=== PATIENT | male | born 1930 | race Caucasian/White ===

== ENCOUNTER 2017-05-11 09:22 | Emergency (ER) | payer MEDICARE, OTHER ==
[2016-04-10 09:16] VITALS: BMI 26.8
[~2017-05-11 09:22] MED LIST: ASPIRIN325 MG PO; ASPIRIN81 MG PO; COZAAR100 MG PO; GLIMEPIRIDE1 MG PO; ISOSORBIDE MONO30 M1 PO; LIPITOR20 MG PO; LOSARTAN POTASS25 MG PO; NORVASC5 MG PO; PLAVIX75 MG PO; TENORMIN100 MG PO; ZYLOPRIM300 MG PO
[2017-05-11 10:17] LABS: BASOPHILS 0.4 % (0-2); EOSINOPHILS 7.3 % (0-7); HEMATOCRIT 31.8 % (42.0-54.0); HEMOGLOBIN 12.4 g/dL (13.5-17.5); IMMATURE GRANULOCYTES 0.4 % (0-5); LYMPHOCYTES 28.3 % (15-50); MCH 37.8 pg (26.0-34.0); MEAN PLATELET VOLUME 9.2 fL (7.4-10.4); MONOCYTES 11.7 % (2-11); NEUTROPHILS 51.9 % (40-80); RBC 3.28 10x6/uL (4.20-6.10); RDW 13.1 % (11.5-14.5); WBC 4.8 10x3/uL (4.8-10.8)
[2017-05-11 10:35] LABS: ALBUMIN 3.3 g/dL (3.4-5.0); ANION GAP 12.9 mmol/L (8-16); BILIRUBIN - TOTAL 0.45 mg/dL (0.2-1.3); CALCIUM 9.1 mg/dL (8.5-10.1); CARBON DIOXIDE 26.8 mmol/L (21.0-32.0); CREATININE - SERUM 1.1 mg/dL (0.6-1.3); POTASSIUM - SERUM 3.7 mmol/L (3.5-5.1); PROTEIN - SERUM 7.5 g/dL (6.4-8.2)
[2017-05-11 10:37] LABS: PLATELET COUNT 294 10x3/uL (130-400)
== END 2017-05-11 12:21 | disposition home or self-care (01) ==
LOC: D.ER 09:22
PROVIDERS: Emergency Medicine
DX: J44.1 Chronic obstructive pulmonary disease with (acute) exacerbation (principal); R06.00 Dyspnea, unspecified; I10 Essential (primary) hypertension

== ENCOUNTER 2017-08-17 12:14 | Observation (INO) | payer MEDICARE, OTHER ==
[2017-08-17 12:38] LABS: BASOPHILS 0.6 % (0-2); HEMATOCRIT 41.2 % (42.0-54.0); HEMOGLOBIN 13.8 g/dL (13.5-17.5); IMMATURE GRANULOCYTES 0.2 % (0-5); LYMPHOCYTES 35.3 % (15-50); MCH 30.9 pg (26.0-34.0); MCHC 33.5 g/dL (31.0-37.0); MCV 92.2 fL (80.0-100.0); MEAN PLATELET VOLUME 10.2 fL (7.4-10.4); MONOCYTES 11.3 % (2-11); NEUTROPHILS 43.6 % (40-80); RBC 4.47 10x6/uL (4.20-6.10); RDW 13.8 % (11.5-14.5); WBC 6.7 10x3/uL (4.8-10.8)
[2017-08-17 12:49] LABS: PLATELET COUNT 221 10x3/uL (130-400)
[2017-08-17 12:53] LABS: ALBUMIN 4.1 g/dL (3.4-5.0); ALKALINE PHOSPHATASE 119 U/L (46-116); ALT (SGPT) 18 U/L (10-68); BILIRUBIN - TOTAL 0.52 mg/dL (0.2-1.3); CALC OSMOLALITY 283 mosm/kg (275-300); CALCIUM 9.8 mg/dL (8.5-10.1); CARBON DIOXIDE 24.7 mmol/L (21.0-32.0); CHLORIDE - SERUM 102 mmol/L (98-107); CREATININE - SERUM 1.4 mg/dL (0.6-1.3); GLUCOSE 135 mg/dL (74-106); POTASSIUM - SERUM 3.8 mmol/L (3.5-5.1); PROTEIN - SERUM 8.2 g/dL (6.4-8.2); SODIUM 141 mmol/L (136-145); UREA NITROGEN 14 mg/dL (7-18); eGFR NON AFRICAN AMERICAN 51 mL/min (90-120)
[2017-08-17 13:03] LABS: CHOL - HDL RATIO 2.7 ratio (2.3-4.9); CHOLESTEROL, TOTAL 197 mg/dL (0-200); CKMB 2.6 U/L (0.0-3.6); CREATINE KINASE 126 UL (21-232); HDL CHOLESTEROL 73 mg/dL (32-96); LDL CHOLESTEROL 105 mg/dL (0-100); LDL-HDL RATIO 1.4 ratio (1.5-3.5); PRO BNP 975 pg/mL (0-450); TRIGLYCERIDE 98 mg/dL (30-200)
[2017-08-17 13:04] LABS: TROPONIN-I < 0.017 ng/mL (0.000-0.060)
--- NOTE | 2017-08-17 16:04 | NUR ---
TRANSFER FROM ER BY W/C. VIPULINTED TO ROOM. CALL LIGHT IN REACH. WILL CONT. PLAN OF CARE.
[2017-08-17 16:34] VITALS: BP 159/74; BMI 25.3
[2017-08-17] MEDS ORDERED: TOPROL XL50 MG PO (16:59)
--- NOTE | 2017-08-17 19:32 | NUR ---
ASSESSMENT COMPLETE, A&O. RESPERATIONS EVEN ON RA. IV TO LEFT FOREARM WITH NS INFUSING AT 50 CC/HR. SITE CLEAN AND DRY. PT DENIES PAIN OR NEEDS, BED LOW, CL IN REACH.
[2017-08-17 21:28] VITALS: BP 128/68
--- NOTE | 2017-08-17 22:10 | NUR ---
ENTERED ROOM, PT IN SITTING UP IN BED WATCHING TV. PT DENIES PAIN OR NEEDS, BED LOW, CL IN REACH.
--- NOTE | 2017-08-18 01:25 | NUR ---
RESTING WITH EYES CLOSED, RESPERATION EVEN, NO S/S DISTRESS NOTED.
[2017-08-18 02:07] VITALS: BP 139/69
--- NOTE | 2017-08-18 04:18 | NUR ---
WEDGER AT BED SIDE TO OBTAIN VITALS.
[2017-08-18 05:25] VITALS: BP 152/72
--- NOTE | 2017-08-18 05:30 | NUR ---
PT UP IN ROOM, AWAKE, ALERT, ORIENTED, ASKING FOR ICE WATER. PT DENIES ANY OTHER NEEDS. CONTINUE TO MONITOR CLOSELY.
--- NOTE | 2017-08-18 06:15 | NUR ---
CONSENT SIGNED FOR CARDIAC CATH TO BE DONE TODAY, WITTNESSED BY SECOND NURSE AND PLACED IN CHART.
[2017-08-18 06:27] VITALS: BMI 25.3
[2017-08-18 07:43] VITALS: BP 152/72
--- NOTE | 2017-08-18 09:00 | NUR ---
RELEMETRY SR. AMBULATES HALLWAY WITHOUT C/O C/P NOTED.
--- NOTE | 2017-08-18 10:05 | NUR ---
IV AND TELEMETRY DCD. DC PLANS GIVEN. UNDERSTANDING VOICED. ESCORTED TO CAR BY W/C.
--- NOTE | 2017-08-20 16:56 | DS ---
PATIENT:SEBASTIAN LAUREN :34 MEDICAL RECORD: [id number] DISCHARGE SUMMARY ADMISSION DATE: 08/17/17 DISCHARGE DATE: 08/18/17 DISCHARGE DIAGNOSES: 1. Coronary artery disease. 2. Angina. 3. Hypertension. HOSPITAL COURSE: Mr. Lauren presents with chest pain, ruled out for myocardial infarction and had no EKG changes. No further episodes of chest pain. Discharged home to follow up with [facility] for stress test in the future. TRANSINT:[id number] Voice Confirmation ID: [id number] DOCUMENT ID: [id number] MIAN AGUIRRE MD at 1656 CC: [id number] DICTATION DATE: 08/18/17921 VETERINARY BACTERIOLOGIST: 08/18/17 1451 DIS IN 08/18/17 [facility] [address] [place] [address]
--- NOTE | 2017-08-20 16:56 | HP ---
PATIENT: SEBASTIAN GUPTA MEDICAL RECORD: [id number] ACCOUNT: [id number] LOCATION:[facility].2120 : 34 ADMISSION DATE: 08/17/17 HISTORY AND PHYSICAL EXAMINATION DIAGNOSES: 1. Angina. 2. Coronary artery disease. 3. Previous multivessel PTCA stent. 4. Hypertension. HISTORY OF PRESENT ILLNESS: This is a gentleman well known to us, previous multivessel PTCA stent, last being approximately 1 year ago. Today while ambulating, he had a chest pressure, a dull aching sensation across the anterior chest, some radiation to the left arm. He presented in the Emergency Room with this. He did receive 1 sublingual nitro, his pain is improved, but he is still having chest pain. last PTCA stent was approximately a year ago. His EKG is with nonspecific ST-T abnormalities. PHYSICAL EXAMINATION: GENERAL APPEARANCE: Well-nourished, well-developed, appears stated age. Level of distress, comfortable. PSYCHIATRIC: Mental status, alert, normal affect. Orientation, oriented to time, place and person. EYES: Lids and conjunctiva, noninjected. No discharge, no pallor. ENT: Lips, teeth, gums, normal dentition. Oropharynx, no cyanosis, no pallor. NECK: Carotid arteries, bilateral normal upstroke, no bruits, no thrills. JUGULAR VEINS: No jugular venous pressure or distention. CERVICAL LYMPH NODES: Nontender, nonenlarged. THYROID: Not enlarged. Nontender. No nodules. LUNGS: Respiratory effort, unlabored. CHEST: Normal curvature. No thoracic deformity. No chest wall tenderness. Percussion, resonant. Auscultation, clear. No wheezes, no rales, no rhonchi. CARDIOVASCULAR: Precordial exam, nondisplaced. No heaves or pericardial thrills. Rate and rhythm, regular. Heart sounds, normal S1, normal S2. No S3, no gallop, no rub. Systolic murmur, not heard. Diastolic murmur, not heard. EXTREMITIES: No cyanosis, no edema. Peripheral pulses, full and equal in all extremities, except as noted. No bruits appreciated. ABDOMEN: Soft, nondistended. Normal aorta. No bruit. Nontender. No masses. Liver, nontender, no hepatomegaly. Spleen, nontender, no splenomegaly. MUSCULOSKELETAL: No joint tenderness. No joint swelling. No erythema. NEUROLOGICAL: Normal gait, normal strength, normal tone. SKIN: Warm and dry. REVIEW OF SYSTEMS: The patient reports easy bruising but reports no swollen glands. The patient reports no fever, no night sweats, no significant weight gain, no significant weight loss. No significant exercise tolerance. The patient reports no dry eyes, no irritation, no vision change. Patient reports no difficulty hearing and no ear pain. Patient reports no frequent nose bleeds or nose and sinus problems. Patient reports on arm pain on exertion. No shortness of breath while lying down. No history of heart murmur. Patient reports no cough, no wheezing or coughing up blood. Patient reports no abdominal pain, no vomiting. Normal appetite. No diarrhea and not vomiting blood. No nausea and no constipation. Patient reports no incontinence. No difficulty urinating. No hematuria. No increased frequency. Patient reports HISTORY AND PHYSICAL [id number] ALONSOSEBASTIAN R no muscle aches. No weakness, no arthralgias, no back pain. No swelling of the extremities. Patient reports no abnormal mole, no jaundice, no rashes. Reports no loss of consciousness. No weakness and no numbness. No seizures, dizziness, or headaches. The patient reports no depression, no sleep disturbance, feeling safe in a relationship and no alcohol abuse. Patient reports on fatigue. Reports no runny nose or sinus pressure. No itching, no hives, and no frequent sneezing. OVERALL IMPRESSION: Chest pain compatible with angina in a person with multivessel coronary artery disease in the past. We will admit for observation. If he continues to have chest pain proceed with repeat coronary angiography. TRANSINT:[id number] Voice Confirmation ID: [id number] DOCUMENT ID: [id number] MIAN AGUIRRE MD at 1656 CC: [id number] DICTATION DATE: 08/17/17 1324 LIE DETECTOR OPERATOR: 08/17/17 1336 DIS IN 08/18/17 [place] [id number] [place] [id number]
== END 2017-08-18 10:13 | disposition home or self-care (01) ==
LOC: D.ER 12:14 → D.M2 14:22 → OBSVTIME 14:22 → D.M2 08-18 10:13
PROVIDERS: Emergency Medicine; ADMIT Internal Medicine Interventional Cardiology
DX: I25.119 Atherosclerotic heart disease of native coronary artery with unspecified angina pectoris (principal); Z95.5 Presence of coronary angioplasty implant and graft; I10 Essential (primary) hypertension

== ENCOUNTER 2017-08-26 17:51 | Inpatient (IN) | payer MEDICARE, OTHER ==
[~2017-08-26] VITALS: Ht 193 cm; Wt 94.3 kg
[~2017-08-26 17:51] MED LIST changes: +TOPROL XL50 MG PO
[2017-08-26 19:47] LABS: BASOPHILS 0.6 % (0-2); EOSINOPHILS 9.6 % (0-7); HEMATOCRIT 35.6 % (42.0-54.0); HEMOGLOBIN 11.7 g/dL (13.5-17.5); IMMATURE GRANULOCYTES 0.2 % (0-5); LYMPHOCYTES 23.1 % (15-50); MCH 30.4 pg (26.0-34.0); MCHC 32.9 g/dL (31.0-37.0); MCV 92.5 fL (80.0-100.0); MEAN PLATELET VOLUME 9.6 fL (7.4-10.4); MONOCYTES 8.2 % (2-11); NEUTROPHILS 58.3 % (40-80); PLATELET COUNT 210 10x3/uL (130-400); RBC 3.85 10x6/uL (4.20-6.10); RDW 13.6 % (11.5-14.5); WBC 4.8 10x3/uL (4.8-10.8)
[2017-08-26 20:03] LABS: APTT 28.3 SECONDS (22.8-39.4); INR 1.11 (0.85-1.17); PROTIME 14.2 SECONDS (11.6-15.0)
[2017-08-26 20:08] LABS: ALBUMIN 3.4 g/dL (3.4-5.0); ANION GAP 10.1 mmol/L (8-16); BILIRUBIN - TOTAL 0.27 mg/dL (0.2-1.3); CALCIUM 9.1 mg/dL (8.5-10.1); CREATININE - SERUM 1.4 mg/dL (0.6-1.3); POTASSIUM - SERUM 4.1 mmol/L (3.5-5.1)
[2017-08-26 20:17] LABS: MAGNESIUM - SERUM 2.2 mg/dL (1.8-2.4)
--- NOTE | 2017-08-26 21:35 | NUR ---
PT ARRIVED ON FLOOR VIA STRETCHER. TRANSFERED TO BED. FAMILY AT SIDE. IV NS INFUSING TO PATENT RIGHT FA. ORIENTED TO ROOM AND CALL LIGHT. BERTHA BED ALARM ARMED. NONSLIP STOCKINGS APPLIED. SCD'S APPLIED. PROVIDED WITH DRINK AND FOOD.
[2017-08-26 22:14] VITALS: BP 156/50; BMI 25.3
[2017-08-27] VITALS (8 sets, daily range): BP systolic 108–135; BP diastolic 43–61; Ht 193 cm; Wt 94.3 kg
[2017-08-27 02:59] LABS: APPEARANCE CLEAR (CLEAR); BILIRUBIN NEGATIVE (NEGATIVE); COLOR YELLOW (YELLOW); GLUCOSE NEGATIVE (NEGATIVE); KETONE NEGATIVE (NEGATIVE); NITRITE NEGATIVE (NEGATIVE); PROTEIN NEGATIVE (NEGATIVE); UROBILINOGEN NORMAL (NORMAL)
--- NOTE | 2017-08-27 07:25 | NUR ---
REMAINS NPO FOR POSSIBLE SURGERY. FAMILY AT BEDSIDE AND BERTHA ALARM ON AND IN WORKING ORDER. CALL LIGHT IN REACH, WILL CONTINUE WITH PLAN OF CARE.
--- NOTE | 2017-08-27 09:08 | NUR ---
PRN DILAUDID ADMINISTERED FOR PAIN. PT'S PERSONAL CLOTHING REMOVED AND PLACED IN HOSPITAL GOWN. AT BEDSIDE. BERTHA ALARM ON AND IN WORKING ORDER. PT DENIES FURTHER NEEDS AT THIS TIME. WILL CONTINUE WITH PLAN OF CARE.
--- NOTE | 2017-08-27 11:15 | NUR ---
DILAUDID ADMINISTERED AT THIS TIME FOR PAIN. REMAINS AT BEDSIDE. PLACED ON 2L VIA NC FOR HISTORY OF SLEEP APNEA AND PT'S LETHARGY.
[2017-08-27 11:47] LABS: BASOPHILS 0.5 % (0-2); EOSINOPHILS 7.2 % (0-7); HEMATOCRIT 32.3 % (42.0-54.0); HEMOGLOBIN 10.6 g/dL (13.5-17.5); IMMATURE GRANULOCYTES 0.2 % (0-5); LYMPHOCYTES 20.5 % (15-50); MCH 30.3 pg (26.0-34.0); MCHC 32.8 g/dL (31.0-37.0); MCV 92.3 fL (80.0-100.0); MEAN PLATELET VOLUME 9.6 fL (7.4-10.4); MONOCYTES 11.4 % (2-11); NEUTROPHILS 60.2 % (40-80); PLATELET COUNT 204 10x3/uL (130-400); RDW 13.5 % (11.5-14.5)
[2017-08-27 12:08] LABS: ALBUMIN 3.1 g/dL (3.4-5.0); ANION GAP 9.6 mmol/L (8-16); BILIRUBIN - TOTAL 0.63 mg/dL (0.2-1.3); CALCIUM 8.7 mg/dL (8.5-10.1); CARBON DIOXIDE 29.4 mmol/L (21.0-32.0); CREATININE - SERUM 1.1 mg/dL (0.6-1.3); PROTEIN - SERUM 6.5 g/dL (6.4-8.2)
[2017-08-28 04:58] LABS: BASOPHILS 0.5 % (0-2); EOSINOPHILS 9.2 % (0-7); HEMATOCRIT 32.1 % (42.0-54.0); HEMOGLOBIN 10.7 g/dL (13.5-17.5); IMMATURE GRANULOCYTES 0.2 % (0-5); LYMPHOCYTES 20.8 % (15-50); MCH 30.8 pg (26.0-34.0); MCHC 33.3 g/dL (31.0-37.0); MCV 92.5 fL (80.0-100.0); MEAN PLATELET VOLUME 9.9 fL (7.4-10.4); MONOCYTES 13.7 % (2-11); NEUTROPHILS 55.6 % (40-80); PLATELET COUNT 203 10x3/uL (130-400); RBC 3.47 10x6/uL (4.20-6.10); RDW 13.6 % (11.5-14.5); WBC 6.3 10x3/uL (4.8-10.8)
[2017-08-28 05:05] VITALS: BP 127/47
[2017-08-28 05:09] LABS: ALBUMIN 3.1 g/dL (3.4-5.0); ANION GAP 10.8 mmol/L (8-16); BILIRUBIN - TOTAL 0.43 mg/dL (0.2-1.3); CALCIUM 8.6 mg/dL (8.5-10.1); CREATININE - SERUM 1.1 mg/dL (0.6-1.3); POTASSIUM - SERUM 3.8 mmol/L (3.5-5.1); PROTEIN - SERUM 6.6 g/dL (6.4-8.2)
--- NOTE | 2017-08-28 07:40 | NUR ---
ASSESSMENT COMPLETE. IV TO R FA PATENT. NS INFUSING AT 75 CC/HR VIA PUMP. PRINCIPAL CONSULTANT SHOWING SR WITH PVC'S 88 PER TECH. O2 2L NC IN USE. [place]. SCD'S IN USE TO BILAT LEGS. BED ALARM IN USE.
[2017-08-28 08:33] VITALS: BP 143/68
[2017-08-28 12:26] VITALS: BP 136/64
--- NOTE | 2017-08-28 16:40 | NUR ---
REDNESS NOTED TO BUTTOCKS. BRUISING NOTED TO L HIP.
[2017-08-28 17:06] VITALS: BP 156/86
[2017-08-28 22:03] VITALS: BP 137/64
[2017-08-29] VITALS (14 sets, daily range): BP systolic 110–167; BP diastolic 59–90
[2017-08-29 06:12] LABS: BASOPHILS 0.6 % (0-2); HEMATOCRIT 30.1 % (42.0-54.0); IMMATURE GRANULOCYTES 0.2 % (0-5); LYMPHOCYTES 19.2 % (15-50); MCH 30.3 pg (26.0-34.0); MCHC 33.2 g/dL (31.0-37.0); MCV 91.2 fL (80.0-100.0); MEAN PLATELET VOLUME 9.7 fL (7.4-10.4); MONOCYTES 13.3 % (2-11); NEUTROPHILS 57.7 % (40-80); PLATELET COUNT 192 10x3/uL (130-400); RDW 13.4 % (11.5-14.5); WBC 6.2 10x3/uL (4.8-10.8)
[2017-08-29 06:36] LABS: ALBUMIN 2.8 g/dL (3.4-5.0); ALKALINE PHOSPHATASE 77 U/L (46-116); ALT (SGPT) 12 U/L (10-68); BILIRUBIN - TOTAL 0.55 mg/dL (0.2-1.3); CALC OSMOLALITY 277 mosm/kg (275-300); CALCIUM 8.4 mg/dL (8.5-10.1); CARBON DIOXIDE 29.6 mmol/L (21.0-32.0); CHLORIDE - SERUM 103 mmol/L (98-107); GLUCOSE 116 mg/dL (74-106); POTASSIUM - SERUM 3.7 mmol/L (3.5-5.1); PROTEIN - SERUM 6.4 g/dL (6.4-8.2); SODIUM 139 mmol/L (136-145); UREA NITROGEN 10 mg/dL (7-18); eGFR NON AFRICAN AMERICAN 75 mL/min (90-120)
--- NOTE | 2017-08-29 07:40 | NUR ---
ASSESSMENT COMPLETE. IV TO R FA PATENT. NS INFUSING AT 75 CC/HR VIA PUMP. NPO FOR SURGERY TODAY. BRUISING NOTED TO L HIP. SKIN TEARS NOTED TO L FA. BOLTING MACHINE OPERATOR SHOWING SR WITH PVC'S 89. O2 2L NC IN USE. [place]. BERTHA MAT IN USE. FAMILY AT BEDSIDE.
--- NOTE | 2017-08-29 08:23 | NUR ---
OFF FLOOR TO OR VIA BED. FAMILY TO WAITING ROOM.
--- NOTE | 2017-08-29 10:30 | NUR ---
RECIEVED BACK TO ROOM FROM RECOVERY ROOM VIA BED. INCISIONS X 3 TO L LEG. SMALL AMOUNT OF PINKISH DRAINAGE NOTED TO UPPER DRESSING. DROWSY BUT AWAKENS TO VERBAL STIMULI. VSS. SCD'S IN USE TO BILAT LEGS. DIAL LATHE OPERATOR PLACED BACK ON PATIENT. FAMILY AT BEDSIDE.
--- NOTE | 2017-08-29 15:15 | NUR ---
REHAB PRESCREEN THIS PATIENT WILL BE A GOOD CANIDINATE FOR REHAB. WILL NEED A PHYSCIAL AND OCCUPATIONAL THERAPY EVAL BEFORE ABLE TO EVAL FOR THERAPY. WE APPRICIATE THE EVAL AND WILL FOLLOW UP ON THIS EVAL. THANKS FOR THIS EVAL. REHAB CLINICAL LIASION SANDRA TOSCANO LPN
--- NOTE | 2017-08-29 16:19 | NUR ---
DROWSY BUT AWAKENS EASILY TO VERBAL STIMULI. SEROSANGIOUS DRAINAGE NOTED TO UPPER DRESSING. ICEPACK IN USE. PEDAL PULSES REMAIN PRESENT AND STRONG. AT BEDSIDE. DENIES ANY NEEDS AT THIS TIME.
--- NOTE | 2017-08-29 18:12 | NUR ---
NO CHANGES NOTED AT THIS TIME.
--- NOTE | 2017-08-29 23:30 | NUR ---
GAVE PT DULCOLAX SUPPOSITORY. AFTER 30 MINUTES, PT HAD SOFT MEDIUM BM. NO OTHER NEEDS. WILL CONTINUE TO MONITOR.
--- NOTE | 2017-08-30 01:00 | NUR ---
PT C/O HAVING SORE THROAT SINCE SURGERY. CLAIMS IT HAS PROGRESSED INTO "CLOSING UP." PT TRIED EATING SANDWICH BUT STATES "FOOD WON'T GO DOWN." TOLD PT HE WILL BE NPO EXCEPT FOR SIPS OF WATER OR ICE, NO MORE FOOD UNTIL SWELLING GOES DOWN OR HE SEES DOCTOR. INSTRUCTED PT TO CALL IF ANY DIFFICULTY BREATHING. PT VERALIZED UNDERSTANDING. WILL CONTINUE TO MONITOR.
[2017-08-30 01:36] VITALS: BP 141/62
[2017-08-30 05:04] VITALS: BP 152/62
[2017-08-30 05:14] LABS: BASOPHILS 0.3 % (0-2); EOSINOPHILS 6.2 % (0-7); HEMOGLOBIN 10.4 g/dL (13.5-17.5); IMMATURE GRANULOCYTES 0.2 % (0-5); LYMPHOCYTES 22.3 % (15-50); MCH 30.2 pg (26.0-34.0); MCHC 33.5 g/dL (31.0-37.0); MCV 90.1 fL (80.0-100.0); MEAN PLATELET VOLUME 9.8 fL (7.4-10.4); MONOCYTES 16.4 % (2-11); NEUTROPHILS 54.6 % (40-80); PLATELET COUNT 229 10x3/uL (130-400); RBC 3.44 10x6/uL (4.20-6.10); RDW 13.3 % (11.5-14.5); WBC 6.6 10x3/uL (4.8-10.8)
[2017-08-30 05:46] LABS: ALBUMIN 2.7 g/dL (3.4-5.0); ANION GAP 10.2 mmol/L (8-16); BILIRUBIN - TOTAL 0.8 mg/dL (0.2-1.3); CALCIUM 8.7 mg/dL (8.5-10.1); CARBON DIOXIDE 28.7 mmol/L (21.0-32.0); CREATININE - SERUM 1.1 mg/dL (0.6-1.3); POTASSIUM - SERUM 3.9 mmol/L (3.5-5.1); PROTEIN - SERUM 6.4 g/dL (6.4-8.2)
[2017-08-30 08:21] VITALS: BP 132/55
[2017-08-30 13:28] VITALS: BP 133/54
--- NOTE | 2017-08-30 13:46 | NUR ---
Patient Name: SEBASTIAN GUPTA Admission Status: ER Accout number: [id number] Admission Date: 08-26-2017 : 1932 Admission Diagnosis: Attending: DONALD TYLER Current LOS: 4 Anticipated DC Date: Planned Disposition: Group Home Facility Primary Insurance: MEDICARE A & B Discharge Planning Comments: CM MET WITH PATIENT AND (GLENN) TO ASSESS DISCHARGE PLANNING NEEDS. PATIENT STATED THAT HE IS INDEPENDENT WITH HIS ADL'S AT HOME, HE DOES NOT HAVE ANY DME. HIS STATES THAT THERE ARE 2 STEPS IN THE BACK OF HIS HOUSE. HE WOULD LIKE TO DO REHAB AT [facility]. CM WILL ASSIST WITH THIS. CM WILL CONTINUE TO FOLLOW AND ASSIST WITH DSICHARGE PLANNING NEEDS. PCP: JAYLEN (BUT IS TRYING TO CHANGE PCP) [facility]ENN () [phone] Enrollment Management Director: Bekah King * Is the patient Alert and Oriented? Yes 0 * How many steps to enter\exit or inside your home? 2 0 * PCP JAYLEN ([facility]) 0 * Pharmacy [facility] 0 * Preadmission Environment Home with Family 0 * ADLs Independent 0 * Equipment None 0 * List name and contact numbers for known caregivers / representatives who currently or will assist patient after discharge: GLENN () [phone] * Community resources currently utilized None 0 * Additional services required to return to the preadmission environment? Yes 0 * Can the patient safely return to the preadmission environment? Yes 0 * Has this patient been hospitalized within the prior 30 days at any hospital? No 0 Grand Total: 0
[2017-08-30 16:13] VITALS: BP 134/58
--- NOTE | 2017-08-30 23:39 | NUR ---
2015)REC'D.IN BED.EYES CLOSED RESP. DEEP AND EVEN.DRSG. LEFT HIP DRY AND INTACT WITH MINIMAL SWELLING OBSERVED LEFT THIGH. FOOT WARM/PEDAL PULSE PRESENT WIGGLES TOES AND ANKLE WHEN TOUCHING BOTTOM OF FOOT. VISITOR AT BEDSIDE ASLEEP IN RECLINER.WILL CONTINUE TO MONITOR FOR ANY CHGES.AND FOLLOW CURRENT PLAN OF CARE.
[2017-08-31] VITALS: BP 125/54
--- NOTE | 2017-08-31 01:30 | NUR ---
PT RESTING WITH EYES CLOSED, RESPIRATIONS EQUAL AND UNLABORED. NO DISTRESS NOTED. WILL CONTINUE WITH PLAN OF CARE.
[2017-08-31 04:00] VITALS: BP 120/56
[2017-08-31 06:07] LABS: BASOPHILS 0.2 % (0-2); EOSINOPHILS 11.1 % (0-7); HEMATOCRIT 28.5 % (42.0-54.0); HEMOGLOBIN 9.6 g/dL (13.5-17.5); IMMATURE GRANULOCYTES 0.2 % (0-5); LYMPHOCYTES 24.1 % (15-50); MCH 30.7 pg (26.0-34.0); MCHC 33.7 g/dL (31.0-37.0); MCV 91.1 fL (80.0-100.0); MEAN PLATELET VOLUME 9.8 fL (7.4-10.4); MONOCYTES 15.2 % (2-11); NEUTROPHILS 49.2 % (40-80); PLATELET COUNT 222 10x3/uL (130-400); RBC 3.13 10x6/uL (4.20-6.10); RDW 13.6 % (11.5-14.5); WBC 5.4 10x3/uL (4.8-10.8)
[2017-08-31 06:38] LABS: ALBUMIN 2.5 g/dL (3.4-5.0); ANION GAP 11.5 mmol/L (8-16); BILIRUBIN - TOTAL 0.7 mg/dL (0.2-1.3); CALCIUM 8.6 mg/dL (8.5-10.1); CREATININE - SERUM 1.1 mg/dL (0.6-1.3); POTASSIUM - SERUM 3.5 mmol/L (3.5-5.1); PROTEIN - SERUM 6.3 g/dL (6.4-8.2)
[2017-08-31] MEDS ORDERED: ELIQUIS2.5 MG PO (07:51)
[2017-08-31] MEDS ORDERED: HYDROCODONE-APA1 TAB PO (07:51)
[2017-08-31 09:40] VITALS: BP 136/67
[2017-08-31] MEDS ORDERED: COLACE100 MG PO (10:23)
[2017-08-31] MEDS ORDERED: FLUTICASONE PRO16 GM NASAL (10:23)
--- NOTE | 2017-08-31 11:10 | NUR ---
OT NOTE: PT UP IN CHAIR; REPORTED FEELING BETTER. STATED THAT HE WAS GOING TO [facility] FOR REHAB TODAY. QUESTIONS ASKED AND ANSWERED IN DETAIL. DISCUSSED ADAP EQUIP AND PROVIDED INFORMATION REGARDING POSSIBLE NEED FOR SHOWER BENCH AND BS COMMODE OR RAISED TOILET SEAT.
--- NOTE | 2017-08-31 12:31 | NUR ---
DISCHARGE INSTRUCTIONS COMPLETED WITH PATIENT. HE VERBALIZED UNDERSTANDING AND DENIES ANY QUESTIONS. D/C IV TO RIGHT FOREARM WITH CATHETER INTACT. CHANGED DRESSING TO LEFT HIP, APPLIED AN AQUACEL DRESSING.
--- NOTE | 2017-08-31 12:45 | NUR ---
PATIENT DISCHARGING TO [facility] ([place], [place]) REHAB TO A SKILLED BE VIA THEIR VAN. AT BEDSIDE. INFORMATION FAXED TO [facility] ([place], [place])
--- NOTE | 2017-08-31 13:00 | NUR ---
PATIENT LEFT VIA WHEELCHAIR WITH STAFF MEMBER FROM [facility].
--- NOTE | 2017-08-31 13:14 | NUR ---
GAVE REPORT TO JOSELIN LEE LPN.
--- NOTE | 2017-09-02 13:19 | OP ---
PATIENT NAME: SEBASTIAN GUPTA MEDICAL RECORD: [id number] :34 LOCATION:[facility] ADMISSION DATE:08/26/17 SURGEON: ANTHONY BILLINGS MD DATE OF OPERATION: 08/29/2017 PREOPERATIVE DIAGNOSIS: Intertrochanteric hip fracture of the left hip. POSTOPERATIVE DIAGNOSIS: Intertrochanteric hip fracture of the left hip. PROCEDURE: Intramedullary gamma nailing of left intertrochanteric hip fracture. SURGEON: Anthony Billings MD ANESTHESIA: General. INTRAOPERATIVE COMPLICATIONS: None. SUMMARY OF PATHOLOGIC FINDINGS: The patient had a transverse intertrochanteric hip fracture consistent with the preoperative diagnosis. OPERATIVE SUMMARY IN DETAIL: After obtaining the appropriate preoperative orthopedic surgery consent as well as anesthetic consultation, evaluation and clearance, the patient was brought to the operating room and placed on the operating table in supine position. After general laryngeal mask was administered, the patient was placed on the fracture table. Right leg was placed in the well leg jain, left leg was placed in the traction device. This was reduced under fluoroscopic guidance on AP and lateral planes. Hip was prepped and draped in routine sterile fashion. A small incision was made at the tip of greater trochanter and taken down to the level of the greater trochanter. Awl was used to create an opening for the ball-tipped guidewire, was passed across the fracture site. Proximal reaming was followed by insertion of the short gamma 125 nail to the appropriate distance and the guide pin was then placed on fluoroscopic guidance on center-center planes. Appropriate reaming was then followed by insertion of the compression screw. The compression screw was then compressed. Derotational screw was placed at the appropriate depth. A distal locking screw was done using distal locking screw guide. Wounds were copiously irrigated and closed. Final radiographs were taken and submitted for radiologist's review. Sterile dressings were applied. The patient was awakened, taken to recovery room in stable condition. All final needle and sponge counts were correct. TRANSINT:[id number] Voice Confirmation ID: [id number] DOCUMENT ID: [id number] ANTHONY BILLINGS MD at 1319 CC: [id number] DICTATION DATE: 08/29/17 1017 PRENATAL TEACHER: 08/29/17 1204 DIS IN 08/31/17 [facility] [address] [facility] [place] [address]
--- NOTE | 2017-09-10 14:14 | CN ---
PATIENT NAME:SEBASTIAN GUPTA MEDICAL RECORD: [id number] : 34 LOCATION:[facility] ADMIT DATE: 08/26/17 ACCOUNT: [id number] CONSULTING PHYSICIAN: MIAN AGUIRRE MD REFERRING PHYSICIAN: DONALD TYLER DO DATE OF CONSULTATION: 08/27/2017 DIAGNOSES: 1. Preoperative evaluation for hip fracture. 2. Coronary artery disease. 3. Previous PTCA and stent. 4. Hypertension. 5. Plavix anticoagulation. HISTORY OF PRESENT ILLNESS: Mr. Gupta has past history of coronary artery disease, PTCA and stent greater than a year ago. No change in his chest pain. He gets infrequent episodes of anginal pain. He sustained a hip fracture while playing basketball. PHYSICAL EXAMINATION: GENERAL APPEARANCE: Well-nourished, well-developed, appears stated age. Level of distress, comfortable. PSYCHIATRIC: Mental status, alert, normal affect. Orientation, oriented to time, place and person. EYES: Lids and conjunctiva, noninjected. No discharge, no pallor. ENT: Lips, teeth, gums, normal dentition. Oropharynx, no cyanosis, no pallor. NECK: Carotid arteries, bilateral normal upstroke, no bruits, no thrills. JUGULAR VEINS: No jugular venous pressure or distention. CERVICAL LYMPH NODES: Nontender, nonenlarged. THYROID: Not enlarged. Nontender. No nodules. LUNGS: Respiratory effort, unlabored. CHEST: Normal curvature. No thoracic deformity. No chest wall tenderness. Percussion, resonant. Auscultation, clear. No wheezes, no rales, no rhonchi. CARDIOVASCULAR: Precordial exam, nondisplaced. No heaves or pericardial thrills. Rate and rhythm, regular. Heart sounds, normal S1, normal S2. No S3, no gallop, no rub. Systolic murmur, not heard. Diastolic murmur, not heard. EXTREMITIES: No cyanosis, no edema. Peripheral pulses, full and equal in all extremities, except as noted. No bruits appreciated. ABDOMEN: Soft, nondistended. Normal aorta. No bruit. Nontender. No masses. Liver, nontender, no hepatomegaly. Spleen, nontender, no splenomegaly. MUSCULOSKELETAL: No joint tenderness. No joint swelling. No erythema. NEUROLOGICAL: Normal gait, normal strength, normal tone. SKIN: Warm and dry. REVIEW OF SYSTEMS: The patient reports easy bruising but reports no swollen glands. The patient reports no fever, no night sweats, no significant weight gain, no significant weight loss. No significant exercise tolerance. The patient reports no dry eyes, no irritation, no vision change. Patient reports no difficulty hearing and no ear pain. Patient reports no frequent nose bleeds or nose and sinus problems. Patient reports on arm pain on exertion. No shortness of breath while lying down. No history of heart murmur. Patient reports no cough, no wheezing or coughing up blood. Patient reports no abdominal pain, no vomiting. Normal appetite. No diarrhea and not vomiting blood. No nausea and no constipation. Patient reports no incontinence. No difficulty urinating. No hematuria. No increased frequency. Patient reports CONSULT REPORT [id number] SEBASTIAN GUPTA no muscle aches. No weakness, no arthralgias, no back pain. No swelling of the extremities. Patient reports no abnormal mole, no jaundice, no rashes. Reports no loss of consciousness. No weakness and no numbness. No seizures, dizziness, or headaches. The patient reports no depression, no sleep disturbance, feeling safe in a relationship and no alcohol abuse. Patient reports on fatigue. Reports no runny nose or sinus pressure. No itching, no hives, and no frequent sneezing. IMPRESSION: At this time, he can safely come off his Plavix. Stable from a cardiac standpoint. Proceed with operative repair. Low cardiac risk. No further cardiac workup or treatment is necessary prior to the operation. TRANSINT:[id number] Voice Confirmation ID: [id number] DOCUMENT ID: [id number] MIAN AGUIRRE MD at 1414 CC: [id number] DICTATION DATE: 08/27/17 1209 SINGLE STROKE PREFORMER: 08/27/17 1225 DIS IN 08/31/17 [place] [id number]
== END 2017-08-31 13:18 | DRG 481 ==
LOC: D.ER 17:51 → D.MS 20:34
PROVIDERS: Emergency Medicine; Nurse Practitioner Family; Orthopaedic Surgery; ADMIT Family Medicine
PROC: 0QH736Z Insertion of Intramedullary Internal Fixation Device into Left Upper Femur, Percutaneous Approach (ICD-10-PCS; principal; 2017-08-29 08:30)
DX: S72.145A Nondisplaced intertrochanteric fracture of left femur, initial encounter for closed fracture (principal); D62 Acute posthemorrhagic anemia; W01.0XXA Fall on same level from slipping, tripping and stumbling without subsequent striking against object, initial encounter; Y93.67 Activity, basketball; E78.5 Hyperlipidemia, unspecified; I25.10 Atherosclerotic heart disease of native coronary artery without angina pectoris; I10 Essential (primary) hypertension; Z95.5 Presence of coronary angioplasty implant and graft

== ENCOUNTER → 2017-09-22 16:19 | Outpatient (CLI) | payer MEDICARE, OTHER ==
[2017-08-27 12:33] VITALS: BMI 25.3
[~2017-09-22 16:19] MED LIST changes: +ACETAMINOPHEN325 MG PO; +BROVANA15 MCG/2 M INH; +COLACE100 MG PO; +ELIQUIS2.5 MG PO; +FLUTICASONE PRO16 GM NASAL; +HYDROCODONE-APA1 TAB PO; +IPRAT-ALBUT 0.5-3 ML UPD; +LINZESS145 MCG PO; +MUCINEX600 MG PO; +NYSTATIN ORAL SU5 ML PO; +PULMICORT0.5 MG/21 UPD; +Rocephin INJ IM; +VIBRAMYCIN 100100 MG PO
== END | disposition home or self-care (01) ==
LOC: D.RAD 16:19
DX: R05 Cough (principal); R50.9 Fever, unspecified

== ENCOUNTER 2017-09-24 16:09 | Inpatient (IN) | payer MEDICARE, OTHER ==
[~2017-09-24] VITALS: Ht 193 cm; Wt 88.8 kg
[~2017-09-24 16:09] MED LIST changes: -ACETAMINOPHEN325 MG PO; -BROVANA15 MCG/2 M INH; -IPRAT-ALBUT 0.5-3 ML UPD; -LINZESS145 MCG PO; -MUCINEX600 MG PO; -NYSTATIN ORAL SU5 ML PO; -PULMICORT0.5 MG/21 UPD; -Rocephin INJ IM; -VIBRAMYCIN 100100 MG PO
[2017-09-24 17:08] LABS: BASOPHILS 0 % (0-2); EOSINOPHILS 0.7 % (0-7); HEMATOCRIT 32.6 % (42.0-54.0); HEMOGLOBIN 11.2 g/dL (13.5-17.5); IMMATURE GRANULOCYTES 1.2 % (0-5); LYMPHOCYTES 8.2 % (15-50); MCH 30.3 pg (26.0-34.0); MCHC 34.4 g/dL (31.0-37.0); MCV 88.1 fL (80.0-100.0); MEAN PLATELET VOLUME 10.2 fL (7.4-10.4); MONOCYTES 2.4 % (2-11); NEUTROPHILS 87.5 % (40-80); RDW 15.1 % (11.5-14.5); WBC 10.3 10x3/uL (4.8-10.8)
[2017-09-24 17:09] LABS: PLATELET COUNT 236 10x3/uL (130-400)
[2017-09-24 17:11] LABS: APPEARANCE CLEAR (CLEAR); BILIRUBIN NEGATIVE (NEGATIVE); COLOR YELLOW (YELLOW); GLUCOSE NEGATIVE (NEGATIVE); KETONE NEGATIVE (NEGATIVE); NITRITE NEGATIVE (NEGATIVE); PROTEIN TRACE mg/dL (NEGATIVE); UROBILINOGEN NORMAL (NORMAL)
[2017-09-24 17:14] LABS: BACTERIA FEW /hpf (NONE SEEN); RED CELLS - URINE 0-5 /hpf (0-5); WHITE CELLS - URINE OCC /hpf (0-5)
[2017-09-24 17:21] LABS: ALBUMIN 2.4 g/dL (3.4-5.0); ANION GAP 14.3 mmol/L (8-16); BILIRUBIN - TOTAL 0.92 mg/dL (0.2-1.3); CALCIUM 8.6 mg/dL (8.5-10.1); CARBON DIOXIDE 27.2 mmol/L (21.0-32.0); CREATININE - SERUM 1.3 mg/dL (0.6-1.3); POTASSIUM - SERUM 3.5 mmol/L (3.5-5.1); PROTEIN - SERUM 6.1 g/dL (6.4-8.2)
[2017-09-24 20:59] VITALS: BP 146/68
[2017-09-24 22:35] VITALS: BP 146/68
[2017-09-25 01:13] VITALS: BP 128/56
[2017-09-25 04:51] VITALS: BP 109/70
--- NOTE | 2017-09-25 07:05 | NUR ---
RECEIVED REPORT. ASSUMED CARE OF PATIENT. CALL LIGHT WITHIN REACH. PATIENT RESTING IN BED WITH EYES OPEN. AT BEDSIDE. PATIENT COMPLAINS OF CONSTIPATION THIS AM. DENIES PAIN OR DISCOMFORT AT THIS TIME. NO DISTRESS.
--- NOTE | 2017-09-25 07:16 | NUR ---
PT WAS ADMITTED FROM THE ER. PT CAME FROM [facility] W/ DX OF PNEUMONIA. PT IS ACCOMAPANIED BY WHO STAYED WITH PT ALL NIGHT AT THE BEDSIDE. PT IS STABLE AND CURRENTLY RECEIVING IV ABX AND HE IS WEARING SUPPLEMENTAL OXYGEN AT 3LNC. WILL CONT TO MONITOR.
[2017-09-25 08:47] VITALS: BP 96/66
--- NOTE | 2017-09-25 10:00 | NUR ---
PATIENT OOB SITTING TO CHAIR AT BEDSIDE. CALL LIGHT WITHIN REACH. NO DISTRESS.
[2017-09-25 11:51] VITALS: BP 104/58
[2017-09-25 12:04] VITALS: Ht 193 cm; Wt 88.8 kg
--- NOTE | 2017-09-25 14:21 | NUR ---
RESTING IN BED WITH EYES CLOSED. EASILY AROUSED. IV FLUSED, SITE IS PATENT. NO DISTRESS. CALL LIGHT WITHIN REACH.
[2017-09-25 15:46] VITALS: BP 150/73
--- NOTE | 2017-09-25 18:57 | NUR ---
REPORT GIVEN TO ONCOMING NURSE. NO DISTRESS.
[2017-09-25 21:24] VITALS: BP 136/67
[2017-09-26 06:25] LABS: BASOPHILS 0 % (0-2); EOSINOPHILS 0 % (0-7); HEMATOCRIT 30.3 % (42.0-54.0); HEMOGLOBIN 10.2 g/dL (13.5-17.5); IMMATURE GRANULOCYTES 0.6 % (0-5); LYMPHOCYTES 5.4 % (15-50); MCH 29.9 pg (26.0-34.0); MCHC 33.7 g/dL (31.0-37.0); MCV 88.9 fL (80.0-100.0); MEAN PLATELET VOLUME 10.2 fL (7.4-10.4); PLATELET COUNT 270 10x3/uL (130-400); RBC 3.41 10x6/uL (4.20-6.10); RDW 15.5 % (11.5-14.5); WBC 10.2 10x3/uL (4.8-10.8)
[2017-09-26 06:50] LABS: BILIRUBIN - TOTAL 0.44 mg/dL (0.2-1.3); CALCIUM 8.9 mg/dL (8.5-10.1); CARBON DIOXIDE 26.9 mmol/L (21.0-32.0); CHOL - HDL RATIO 6.3 ratio (2.3-4.9); CREATININE - SERUM 1.2 mg/dL (0.6-1.3); POTASSIUM - SERUM 3.9 mmol/L (3.5-5.1); PROTEIN - SERUM 6.3 g/dL (6.4-8.2); THYROID STIMULATING HORMONE 0.45 uIU/mL (0.36-3.74)
[2017-09-26 06:59] LABS: HEMOGLOBIN A1C 6.7 % (4.8-6.0)
--- NOTE | 2017-09-26 07:20 | NUR ---
RECEIVED REPORT. ASSUMED CARE OF PATIENT. RESTING IN BED WITH EYES CLOSED. IN BED WITH PATIENT. RESP EVEN AND UNLABORED. EASILY AROUSED. NO DISTRESS. DENIES NEEDS.
--- NOTE | 2017-09-26 08:35 | NUR ---
ASSISTE PATIENT TO INSERT BILATERAL HEARING AIDS AT THIS TIME HE COULD NOT GET A GOOD GRASP ON THEM TO INSERT. PATIENT THANKED THIS NURSE FOR PUTTING HIS HEARING AIDS IN. NO DISTRESS. SITTING UP IN BED CONSUMING AM MEAL AT THIS TIME.
[2017-09-26 09:34] VITALS: BP 127/67
--- NOTE | 2017-09-26 09:40 | NUR ---
FSBS 359. 10 UNITS HUMULIN ADMINISTERED PER SLIDING SCALE. NO DISTRESS. AT BEDSIDE FOR AM ROUNDS AT THIS TIME.
--- NOTE | 2017-09-26 11:49 | NUR ---
FSBS 326. 8 UNITS HUMUILN INSULIN ADMINISTERED PER SLIDING SCALE. NO DISTRESS.
[2017-09-26 12:16] VITALS: BP 131/60
--- NOTE | 2017-09-26 15:30 | NUR ---
PATIENT ASSISTED TO RESTROOM. PATIENT CONFUSED, WANTS TO KNOW WHAT IS GOING ON WITH HIS FOLKS. PATIENT STATES THEY MADE IT NOT POSSIBLE TO CALL OUT ON THE PHONE THAT EVERYONE MUST HAVE MOVED. ASSISTED PATIENT WITH CALLING HIS . NO DISTRESS. CALL LIGHT WITHIN REACH. PATIENT RESTING IN BED AT THIS TIME.
[2017-09-26 16:12] VITALS: BP 113/65
--- NOTE | 2017-09-26 16:17 | NUR ---
FSBS 165. 2 UNITS INSULIN ADMINISTERED PER SLIDING SCALE.
[2017-09-26 21:46] VITALS: BP 134/71
[2017-09-27] VITALS: BP 135/55
--- NOTE | 2017-09-27 02:24 | NUR ---
PT IN BED WITH HOB UP FOR COMFORT. EYES CLSOED. CHEST RISING AND FALLING. AT BEDSIDE. 02 @ 3L VIA NC. LEFT FA SL AND FLUSHES EASILY. BED IN LOWEST POSITION AND CALL LIGHT WITHIN REACH.
[2017-09-27 05:33] VITALS: BP 121/69
--- NOTE | 2017-09-27 07:30 | NUR ---
REPORT RECEIVED. RR EVEN AND UNLABORED, PT RECEIVING BREATHING TX. FAMILY AT BEDSIDE, WILL CTM.
[2017-09-27 08:52] VITALS: BP 155/75
[2017-09-27 12:39] VITALS: BP 145/70
--- NOTE | 2017-09-27 15:30 | NUR ---
FAMILY APPROACHED DESK VERY CONCERNED ABOUT PT BEING SENT HOME TOMORROW. EXPLAINED THAT SHE WOULD LIKE A CHEST X-RAY AND PFTS PRIOR TO DISCHARGE. WILL ADDRESS WITH DR. RODRIGUEZ WHEN HE ROUNDS.
[2017-09-27 16:27] VITALS: BP 155/83
--- NOTE | 2017-09-27 18:30 | NUR ---
PT RESTING QUIETLY, RR EVEN AND UNLABORED. PT DENIES NEEDS AT THIS TIME. FAMILY AT BEDSIDE, WILL GIVE REPORT ON PT CONDTION FOR THE DAY.
[2017-09-27 21:22] VITALS: BP 142/65
[2017-09-28 02:14] VITALS: BP 164/81
[2017-09-28 05:55] VITALS: BP 151/74
--- NOTE | 2017-09-28 07:15 | NUR ---
REPORT RECEIVED. PT DENIES NEEDS AT THIS TIME. FAMILY AT BEDSIDE. RR EVEN AND UNLABORED, WILL CTM.
[2017-09-28] MEDS ORDERED: Rocephin INJ IM (08:15)
[2017-09-28] MEDS ORDERED: VIBRAMYCIN 100100 MG PO (08:15)
[2017-09-28] MEDS ORDERED: NYSTATIN ORAL SU5 ML PO (08:17)
[2017-09-28] MEDS ORDERED: IPRAT-ALBUT 0.5-3 ML UPD (08:17)
[2017-09-28] MEDS ORDERED: BROVANA15 MCG/2 M INH (08:17)
[2017-09-28] MEDS ORDERED: ASPIRIN81 MG PO (08:18)
[2017-09-28] MEDS ORDERED: PULMICORT0.5 MG/21 UPD (08:18)
[2017-09-28] MEDS ORDERED: MUCINEX600 MG PO (08:19)
[2017-09-28] MEDS ORDERED: LINZESS145 MCG PO (08:20)
--- NOTE | 2017-09-28 09:45 | NUR ---
Patient Name: SEBASTIAN GUPTA Admission Status: ER Accout number: [id number] Admission Date: 09-24-2017 : 1930 Admission Diagnosis: Attending: MAT RODRIGUEZ Current LOS: 4 Anticipated DC Date: 09-28-2017 Planned Disposition: LONGTERM FACILITY Primary Insurance: MEDICARE A & B PLANNED EXTERNAL PROVIDER: [facility], MEDICARE REHAB BED Discharge Planning Comments: Patient Name: JOSE MANUEL BETANCOURT Encounter No: [id number] : 05-11-1929 Primary Insurance: MEDICARE A & B Anticipated DC Date: 09-25-2017 Planned Disposition: Residential Facility External Planned Provider: [facility]HAB [facility]ED DISCHARGE PLANNING: * Is the patient Alert and Oriented? Yes 0 * How many steps to enter\exit or inside your home? 2 0 * PCP [facility] 0 * Pharmacy [facility] 0 * Preadmission Environment Residential Facility 0 * [facility] * ADLs Partial Dependent 0 * Partial ADLs (Assistance needed) Ambulation Bathing Medication Management 0 * Equipment Other 0 * Other Equipment ALL MEDICAL EQUIPMENT PROVIDED BY FACILITY 0 * List name and contact numbers for known caregivers / representatives who currently or will assist patient after discharge: GLENN GUPTA, SPOUSE, 0 * Community resources currently utilized None 0 * Please name any agencies selected above. NONE 0 * Additional services required to return to the preadmission environment? No 0 * Can the patient safely return to the preadmission environment? Yes 0 * Has this patient been hospitalized within the prior 30 days at any hospital? No 0 CM RECEIVED DISCHARGE ORDER, MET WITH PT AND SPOUSE IN ROOM TO DISCUSS DISCHARGE PLANNING AND NEEDS. PT REPORTS HE IS IN REHAB AT [facility] AND WILL RETURN THERE TODAY; PT'S SPOUSE REQUESTED SYLVESTERJUSTICE REED TO THEATRICAL RIGGER PT. IMPORTANT MESSAGE FROM MEDICARE PROVIDED AND EXPLAINED. CM CALLED BARBARA, CLINICAL LIAISON FOR [facility], , ASKED FOR RETURN FOR REHAB. CM FAXED HOSPITAL STAY AND DISCHARGE INFORMATION TO [facility] VIA BARBARA AT [phone]. BARBARA ADVISED [facility] TO ACCEPT TODAY, SHE WILL NOTIFY CM WITH VAN THEATRICAL RIGGER TIME SHORTLY. NURSE REPORT TO BE CALLED TO [facility] AT [phone]. [facility] TO CALL WITH VAN THEATRICAL RIGGER TIME. Project Coordinator: Justin Hale
[2017-09-28 09:48] VITALS: BP 142/85
--- NOTE | 2017-09-28 10:45 | NUR ---
PT DISCHARGED. [facility] TRANSPORT HERE TO CIRCUIT CLERK PT. CALLED REPORT TO [facility] NURSE. D/C INSTRUCTIONS PROVIDED TO PT AND FAMILY. GAVE COPY OF PAPERWORK TO [facility] PERSONNEL WITH PRINTED SCRIPTS. DENIES FURTHER NEEDS. IV CATHETER REMOVED WITH CATHETER TIP INTACT. WILL BE LEAVING FLOOR VIA WHEELCHAIR. PT AND FAMILY VERBALIZED SATISFACTION WITH CARE.
== END 2017-09-28 11:04 | DRG 194 ==
LOC: D.ER 16:09 → D.M2 18:03
PROVIDERS: Physician Assistant Medical; ADMIT Family Medicine
DX: J18.9 Pneumonia, unspecified organism (principal); E87.1 Hypo-osmolality and hyponatremia; Z74.09 Other reduced mobility; I25.10 Atherosclerotic heart disease of native coronary artery without angina pectoris; I10 Essential (primary) hypertension; E78.5 Hyperlipidemia, unspecified; E11.9 Type 2 diabetes mellitus without complications; K59.00 Constipation, unspecified; Z87.891 Personal history of nicotine dependence

== ENCOUNTER → 2017-10-12 15:20 | Outpatient (CLI) | payer MEDICARE, OTHER ==
[2017-09-25 12:04] VITALS: BMI 23.5
[~2017-10-12 15:20] MED LIST changes: +ACETAMINOPHEN325 MG PO; +BROVANA15 MCG/2 M INH; +IPRAT-ALBUT 0.5-3 ML UPD; +LINZESS145 MCG PO; +MUCINEX600 MG PO; +NYSTATIN ORAL SU5 ML PO; +PULMICORT0.5 MG/21 UPD; +Rocephin INJ IM; +VIBRAMYCIN 100100 MG PO
== END | disposition home or self-care (01) ==
LOC: D.RAD 15:20
DX: R06.02 Shortness of breath (principal)

== ENCOUNTER 2017-11-02 07:54 | Outpatient (CLI) | payer MEDICARE, OTHER ==
[~2017-11-02] VITALS: Ht 193 cm; Wt 90.9 kg
--- NOTE | ~2017-11-02 | HEMODYNAMI ---
PATIENT:SEBASTIAN GUPTA MEDICAL RECORD: [id number] : 34 LOCATION:[facility] ADMISSION DATE: 11/02/17 Generatedon:11/02/201710:07 Patient name: SEBASTIAN GUPTA Patient #: [id number] SSN: : 1930 Date of study: 11/02/2017 Page: Of Hemodynamic Procedure Report Patient Data Patient Demographics Procedure consent was obtained First Name: SEBASTIAN Gender: Male Last Name: ALONSO : 1930 [facility] Initial: R Age: 87 year(s) Patient #: [id number] Race: Additional ID: [id number] Contact details Address: [address] [place] [address] State: [place] City: [place] Zip code: [address] Past Medical History History of disease Date Diagnosis Comments CAD Hypertension Arrhythmias - Ventricular tachycardias (VT)->Premature ventricular complexes (PVC) Allergies Allergen Reaction Date Comments Reported Penicillins 03/19/2015 ZENY inhibitors 09/22/2015 Other allergy 11/02/2017 PCN, Atenolol, ZENY Inhibitors Admission Admission Data Admission Date: 11/02/2017 Admission Time: 7:54 Height (in.): 6.4 BSA: 0.36 (m2) Height (cm.): 16.26 BMI: 3347.13 (kg/m2) Weight (lbs.): 195 Weight (kg.): 88.45 Lab Results Lab Result Date: 11/02/2017 Lab Result Time: 8:30 Biochemistry Name Units Result Min Max BUN mg/dl 11 --(-*--)-- 7 18 Creatinine mg/dl 1.1 --(--*-)-- 0.6 1.3 CBC Name Units Result Min Max Hematocrit % 37.7 *-(----)-- 42 54 Hemoglobin g/dl 12.2 *-(----)-- 13.5 17.5 Procedure Procedure Types Cath Procedure Diagnostic Procedure LHC [facility] w/Coronaries PCI Procedure Coronary Stent Coronary Stent Initial Miscellaneous Procedures Moderate Sedation up to 30 minutes Procedure Description Procedure Date Procedure Date: 11/02/2017 Procedure Start Time: 9:45 Procedure End Time: 10:02 Procedure Staff Name Function Tahir Partida MD Performing Physician Jerrica Zheng RT Scrub Christiano Black RN Nurse Abdelrahman Breaux RT Monitor Procedure Data Cath Procedure Fluoroscopy Diagnostic fluoroscopy Total fluoroscopy Time: 4.8 time: 4.8 min min Diagnostic fluoroscopy Total fluoroscopy dose: dose: 360.6 mGy 360.6 mGy Contrast Material Contrast Material Type Amount (ml) Isovue 300 107 Entry Location Entry Primary Successful Side Size Upsize Upsize Entry Closure Succes sful Closure Location (Fr) 1 (Fr) 2 (Fr) Remarks Device Remarks Femoral Right 5 Fr 6 Fr Exoseal artery Short Estimated blood loss: 10 ml Diagnostic catheters Device Type Used For End Catheter Placement MULTIPACK Pigtail 5 Fr Procedure catheter MULTIPACK JL 4.0 5Fr Procedure catheter MULTIPACK 3DRC 5Fr Procedure catheter Procedure Complications No complications Procedure Medications Medication Administration Route Dosage Oxygen NC 2 l/min Heparin Flush Bag added to field 2 bags (1000units/500ml NS) 0.9% NaCl I.V. 100 ml/hr Fentanyl I.V. 50 mcg Versed I.V. 1 mg Heparin Bolus I.V. 4000 units Integrilin (Bolus I.V. 8.5 ml 2mg/ml) Integrilin (Bolus wasted 1.5 ml 2mg/ml) Plavix P.O. 600 mg Hemodynamics Rest BSA: 0.36 (m2) HGB: 12.2 (g/dl) O2 Consumption: Estimated: 40.16 (ml/min) O2 Con sumption indexed: Estimated:111.56 (ml/min/m) Heart Rate: 65 (bpm) Pressure Samples Time Site Value (mmHg) Purpose Heart Use Rate(bpm) 9:48 AO 132/64(91) Snapshot 68 Snapshots Pre Cath Intra NCS Post Cath Vital Signs Time Heart Resp SPO2 etCO2 NIBP (mmHg) Rhythm Pain Sedation Rate (ipm) (%) (mmHg) Status Level (bpm) 9:37:57 68 18 96 0 Time NSR 0 (11) 10(A) Exceeded , No pain 9:42:44 66 16 99 23.3 Time NSR 0 (11) 10(A) Exceeded , No pain 9:46:56 69 18 98 37.7 Time NSR 0 (11) 9(A) Exceeded , No pain 9:49:48 71 27 87 16.5 148/72(119) NSR 0 (11) 9(A) , No pain 9:54:12 75 20 92 0 133/72(115) NSR 0 (11) 9(A) , No pain 9:58:28 79 20 94 24.8 144/76(101) NSR 0 (11) 9(A) , No pain 10:02:50 79 19 98 21.1 147/74(117) NSR 0 (11) 9(A) , No pain Medications Time Medication Route Dose Verified Delivered Reason Notes Effectiveness by by 9:41:25 Oxygen NC 2 Tahir Alvarado Per physician l/min Helga Black RN 9:41:59 Heparin Flush added 2 Tahir Alvarado used for Bag to bags Helga Black RN procedure (1000units/500ml field NS) 9:42:17 0.9% NaCl I.V. 100 Tahir Alvarado Per physician ml/hr Helga Black RN 9:45:09 Fentanyl I.V. 50 Tahir Alvarado for sedation mcg Helga Black RN 9:45:16 Versed I.V. 1 mg Tahir Alvarado for sedation Helga Black RN 9:54:02 Heparin Bolus I.V. 4000 Tahir Alvarado for units Helga Black RN anticoagulation 9:54:24 Integrilin I.V. 8.5 Tahir Alvarado for (Bolus 2mg/ml) ml Helga Black RN antiplatelet therapy 9:54:34 Integrilin wasted 1.5 Tahir Alvarado for (Bolus 2mg/ml) ml Helga Black RN antiplatelet therapy 10:04:12 Plavix P.O. 600 Tahir Alvarado for mg Helga Black RN antiplatelet therapy Procedure Log Time Note 8:32:33 Patient Height : 6.4 inches 8:32:36 Patient Weight : 195 lbs 8:33:13 Time tracking: Regular hours 8:33:18 Plan of Care:Hemodynamics will remain stable., Cardiac rhythm will remain stable., Comfort level will be maintained., Respiratory function will remain adequate., Patient/ family verbilizes understanding of procedure., Procedure tolerated without complication., Recovers from procedure without complications.. 8:34:20 H&P Date Dictated: 10/20/2017 Within 30 days and on chart., H&P Addendum completed by physician on day of procedure. (MUST COMPLETE FOR ALL OUTPATIENTS). 9:00:03 Christiano Black RN sent for patient. Start room use. 9:21:06 Signed procedure consent form obtained from patient. 9:26:59 Patient received from Pre/Post Procedure Room to CCL 3 Alert and oriented. Tansferred to table in Supine position. 9:27:00 Warm blankets applied, and edward hugger turned on for patient comfort. 9:27:01 Correct patient and procedure confirmed by team. 9:27:02 ECG and BP/O2 sat monitors applied to patient. 9:34:45 Vital chart was started 9:39:30 Lab Result : BUN 11 mg/dl 9:39:30 Lab Result : Creatinine 1.1 mg/dl 9:39:36 Baseline sample Acquired. 9:39:39 Rhythm: sinus rhythm 9:39:46 Full Disclosure recording started 9:39:49 Pre-procedure instructions explained to patient. 9:39:49 Pre-op teaching completed and patient verbalized understanding. 9:39:50 Family in waiting room. 9:39:51 Patient NPO since Midnight. 9:40:34 Patient allergic to Other allergyPCN, Atenolol, ZENY Inhibitors 9:40:36 Is the patient allergic to Iodine/contrast media? No. 9:40:37 Is patient on blood thinner?No 9:40:38 Patient diabetic? No. 9:40:41 Previous problem with sedation/anesthesia? No ? 9:40:51 Snore? Yes 9:40:51 Sleep apnea? Yes 9:40:52 Deviated septum? No 9:40:53 Opens mouth fully? Yes 9:40:54 Sticks out tongue? Yes 9:40:55 Airway obstruction? No ? 9:40:59 Dentures? Yes intight 9:41:03 Pre procedure: right dorsailis pedis pulse 1+ Palpable, but thready & weak; easily obliterated 9:41:05 Patient pain scale 0/10 ?. 9:41:25 Oxygen 2 l/min NC was administered by Christiano Black RN; Per physician; 9:41:36 IV patent on arrival in left hand with 0.9% NaCl at [facility]. 9:41:39 Lab results completed and on chart. 9:41:41 Right groin area was prepped with chlora-prep and draped in sterile fashion 9:41:42 Alarms reviewed by R. N. 9:41:42 Sharps counted by scrub and verified by R.N. 9:41:44 Use device set Femoral Dx 9:41:58 ACIST Manifold (41549) opened to sterile field. 9:41:58 ACIST Hand Control (53701) opened to sterile field. 9:41:59 Heparin Flush Bag (1000units/500ml NS) 2 bags added to field was administered by Christiano Black RN; used for procedure; 9:42:10 ACIST Syringe (71864) opened to sterile field. 9:42:11 Bag Decanter (2002S) opened to sterile field. 9:42:13 Medline Cath Pack ([id number]) opened to sterile field. 9:42:15 Tegaderm 4 x 4 (1626W) opened to sterile field. 9:42:17 0.9% NaCl 100 ml/hr I.V. was administered by Christiano Black RN; Per physician; 9:42:17 PERCUTANEOUS ENTRY 19GA needle opened to sterile field. 9:42:18 DIAGNOSTIC WIRE .035 260cm J wire (972247) opened to sterile field. 9:42:19 SHEATH 5FR Springer (QTI248) opened to sterile field. 9:42:22 DIAGNOSTIC Multipack 5Fr catheter set (NP8250) opened to sterile field. 9:42:47 Lab Result : Hematocrit 37.7 % 9:42:47 Lab Result : Hemoglobin 12.2 g/dl 9:43:26 Physician arrived 9:43:27 --------ALL STOP TIME OUT------ 9:43:27 Final Timeout: patient, procedure, and site verified with staff and physician. All members of the team are in agreement. 9:43:29 Right groin site verified by team. 9:43:31 Physical assessment completed. ASA score P 2 - A patient with mild systemic disease as per Tahir Partida MD. 9:43:34 Sedation plan: IV Moderate Sedation Medication:Versed, Fentanyl 9:45:09 Fentanyl 50 mcg I.V. was administered by Christiano Black RN; for sedation; 9:45:16 Versed 1 mg I.V. was administered by Christiano Black RN; for sedation; 9:45:26 Procedure started. 9:45:27 Zero performed for pressure channel P1 9:45:33 Zero performed for pressure channel P1 9:45:39 Local anesthetic to right femoral artery with Lidocaine 2% by Tahir Partida MD.INITIAL ACCESS ONLY 9:45:45 A 5 Fr sheath was inserted into the Right Femoral artery 9:46:47 A MULTIPACK Pigtail 5 Fr catheter was advanced over the wire and used for Procedure. 9:47:33 LV gram done using MACDONALD 9:47:36 Injector settings: Ml/sec: 10, Volume: 20, 9:47:49 EF : 30 % 9:47:58 Catheter exchanged over wire. 9:48:06 A MULTIPACK JL 4.0 5Fr catheter was advanced over the wire and used for Procedure. 9:48:52 LCA angiography performed. 9:50:45 CHOICE PT Extra Support 182cm wire ([id number]) opened to sterile field. 9:50:46 INFLATOR Merit BasixCompak (UW0746) opened to sterile field. 9:50:50 SHEATH 6FR Springer (HVE599) opened to sterile field. 9:50:54 Catheter exchanged over wire. 9:50:58 A MULTIPACK 3DRC 5Fr catheter was advanced over the wire and used for Procedure. 9:51:06 RCA angiography performed. 9:51:16 Catheter removed. 9:51:31 Sheath upsized to a 6 Fr Short. 9:52:30 GUIDE 6FR XBLAD 3.5 catheter ([id number]) opened to sterile field. 9:52:39 6 Fr xblad 3.5 guide catheter was inserted over the wire 9:53:31 choice pt es wire advanced. 9:54:02 Heparin Bolus 4000 units I.V. was administered by Christiano Black RN; for anticoagulation; 9:54:13 Wire advanced across lesion. 9:54:24 Integrilin (Bolus 2mg/ml) 8.5 ml I.V. was administered by Christiano Black RN; for antiplatelet therapy; 9:54:34 Integrilin (Bolus 2mg/ml) 1.5 ml wasted was administered by Christiano Black RN; for antiplatelet therapy; 9:55:50 Inflation number: 1 A EUPHORA 2.5 x 15 Balloon ([id number]) was prepped and advanced across the Prox CX, then inflated to 17 MILO for 0:10 (min:sec). 9:56:08 Balloon removed over the wire. 9:58:18 Inflation Number: 2 A JEROMY RX 2.5 x 18 stent ([id number]) was prepped and advanced across the Prox CX. The stent was deployed at 17 MILO for 0:10 (min:sec). 9:58:45 Inflation number: 3 The stent balloon was then re-inflated across the Prox CX to 17 MILO for 0:10 (min:sec). 9:59:22 Stent catheter was removed intact over wire. 9:59:22 Wire removed. 9:59:23 Guide catheter removed. 9:59:34 EXOSEAL 6Fr (EX600) opened to sterile field. 9:59:42 Sheath removed intact; hemostasis achieved with Exoseal to the Right Femoral artery. 9:59:44 Procedure ended.(Physican Out) 9:59:53 Fluoroscopy time 04.80 minutes. 10:00:01 Fluoroscopy dose: 360.6 mGy 10:00:01 Flurop Dose total: 360.6 10:00:04 Contrast amount:Isovue 300 107ml. 10:00:08 Sharps counted by scrub and verified by R.N. 10:00:09 Insertion/operative site no bleeding no hematoma. 10:00:12 Post-op/insertion site Right Femoral artery dressed using a 4 x 4 and Tegaderm. 10:00:15 Post right femoral artery:stable, soft, clean and dry 10:00:16 Post Procedure Pulses reassessed and unchanged 10:00:17 Post-procedure physical assessment completed. ASA score P 2 - A patient with mild systemic disease as per Tahir Partida MD. 10:00:19 Post procedure rhythm: unchanged. 10:00:21 Estimated blood loss: 10 ml 10:00:22 Post procedure instruction explained to patient.Patient verbalizes understanding. 10:00:23 Patient needs reinforcement of post procedure teaching. 10:00:53 Procedure type changed to Cath procedure, Diagnostic procedure, LHC, LHC w/Coronaries, PCI procedure, Coronary Stent, Coronary Stent Initial, Miscellaneous Procedures, Moderate Sedation up to 30 minutes 10:01:59 Procedure and supply charges have been captured, reviewed, submitted and are correct. 10:02:01 Procedure Complication : No complications 10:02:03 Vital chart was stopped 10:02:03 See physician's report for complete and final results. 10:02:04 Report given to Pre/Post Procedure Room. 10:02:06 Patient transfered to Pre/Post Procedure Room with Stretcher. 10:02:08 Procedure ended. 10:02:08 Full Disclosure recording stopped 10:02:57 End room use (Document Last) 10:04:12 Plavix 600 mg P.O. was administered by Christiano Black RN; for antiplatelet therapy; Intervention Summary Intervention Notes Time ActionType Lesion and Equipment Used Action# Pressure Duration Attributes 9:55:50 Inflate Prox CX EUPHORA 2.5 x 1 17 00:10 balloon 15 Balloon ([id number]) 9:58:18 Place stent Prox CX JEROMY RX 2.5 x 2 17 00:10 18 stent ([id number]) 9:58:45 Reinflate Prox CX JEROMY RX 2.5 x 3 17 00:10 stent 18 stent balloon ([id number]) Device Usage Item Name Manufacture Quantity Catalog Number Hospital Part Current M inimal Lot# / Charge Number Stock Stock Serial# Code ACIST Manifold Acist 1 84995 148437 575514 742337 5 (39406) Medical Systems Inc ACIST Hand Acist 1 60155 822009 593698 341252 5 Control Medical (35320) Systems Inc ACIST Syringe Acist 1 18098 095600 321888 134730 2 0 (82465) Medical Systems Inc Bag Decanter Microtek 1 2001S 721653 74502 132221 5 (2001S) Medical Inc. Medline Cath Cardinal 1 [id number] 358322 47211 251750 5 [facility] ([id number]) Tegaderm 4 x 4 3M 1 1626W 453916 702232 048283 5 (1626W) PERCUTANEOUS Cook Medical 1 I95134 909433 619157 5 ENTRY 19GA needle DIAGNOSTIC [facility] Drew 1 691756 558549 107869 727210 3 0 WIRE .035 260cm J wire (910516) SHEATH 5FR Terumo 1 HEV902 546132 679422 537895 4 0 Springer (AZK781) DIAGNOSTIC Cardinal 1 JQ3835 242569 51820 567600 3 0 Multipack 5Fr Health catheter set (LV8913) MULTIPACK Cardinal 1 724789 5 Pigtail 5 Fr Health catheter MULTIPACK JL Cardinal 1 079113 5 4.0 5Fr Health catheter CHOICE PT Biggs 1 [id number] 818115 355910 983857 5 Extra Support Scientific 182cm wire ([id number]) INFLATOR Merit Merit 1 VE0427 006103 280498 866861 1 5 [employer] [facility] Medical (FE1994) SHEATH 6FR Terumo 1 FFB969 939587 406505 999367 4 0 Springer (YKO792) MULTIPACK 3DRC Cardinal 1 836167 5 5Fr catheter Health GUIDE 6FR Cardinal 1 [id number] 911875 121484 717094 1 0 XBLAD 3.5 Health catheter ([id number]) EUPHORA 2.5 x Medtronic 1 [id number] 899551 852093 357440 5 [id number] 15 Balloon ([id number]) JEROMY RX 2.5 x Medtronic 1 [id number] 204234 2830261 157130 5 [id number] 18 stent ([id number]) EXOSEAL 6Fr Cardinal 1 EX600 192762 850729 312923 1 0 (EX600) Health Signature Audit [place] Stage Time Signature Unsigned Intra-Procedure 11/02/2017 Abdelrahman Breaux 10:07:41 AM RT(R) Signatures Monitor : Abdelrahman Breaux RT Signature : Date : Time : [facility] [address], [place] [address]
--- NOTE | ~2017-11-02 | OP ---
PATIENT NAME: SEBASTIAN GUPTA MEDICAL RECORD: [id number] :32 LOCATION:D.CAT ADMISSION DATE: SURGEON: MIAN AGUIRRE MD DATE OF OPERATION: 11/02/2017 DATE OF SERVICE: 11/02/2017 PROCEDURES: 1. PTCA stent left circumflex. 2. Left heart catheterization. 3. Selective coronary angiography. 4. Left ventriculogram. INDICATION: Angina and coronary artery disease. PROCEDURE IN DETAIL: After informed consent was obtained and after a detailed explanation of the risks, benefits as well as alternative therapies, the patient elected to proceed with angiogram and angioplasty. The right femoral area was prepped and draped in normal sterile fashion. The right femoral artery was cannulated via modified Seldinger technique with placement of 6-Pashto sheath. All catheters exchanged through this sheath. FINDINGS: The left ventriculogram was performed in standard 30-degree MACDONALD view, reveals global hypokinesis throughout all segments. Overall ejection fraction is 30%. SELECTIVE CORONARY ANGIOGRAPHY: 1. Left main showed no significant angiographic disease. 2. Left anterior descending has previously placed stents in the LAD as well as the LAD diagonal. These are widely patent with no significant restenosis. No disease elsewise throughout the LAD or its branches. 3. The left circumflex has 95% stenosis in the proximal vessel. 4. The right coronary has previously placed stents, these are widely patent. However, there is a new 80% stenosis in the mid distal vessel. PTCA STENT OF THE LEFT CIRCUMFLEX: The stent used was a 2.5 x 18 mm Freddie. Result was 0% residual stenosis. OVERALL IMPRESSION: Successful percutaneous transluminal coronary angioplasty stent of the left circumflex going from 95% initial stenosis to 0% residual. TRANSINT:[id number] Voice Confirmation ID: [id number] DOCUMENT ID: [id number] MIAN AGUIRRE MD at 1323 CC: [id number] DICTATION DATE: 11/02/17 1006 ASSISTANT DESIGNER: 11/02/17 1123 DEP CLI 11/02/[address] [address]
[~2017-11-02 07:54] MED LIST changes: -ACETAMINOPHEN325 MG PO
[2017-11-02 08:35] VITALS: BP 153/66; Ht 193 cm; Wt 90.9 kg
[2017-11-02 08:40] LABS: BASOPHILS 0.7 % (0-2); EOSINOPHILS 5.9 % (0-7); HEMATOCRIT 37.7 % (42.0-54.0); HEMOGLOBIN 12.2 g/dL (13.5-17.5); IMMATURE GRANULOCYTES 0.3 % (0-5); LYMPHOCYTES 33.6 % (15-50); MCH 30.3 pg (26.0-34.0); MCHC 32.4 g/dL (31.0-37.0); MCV 93.5 fL (80.0-100.0); MEAN PLATELET VOLUME 10.2 fL (7.4-10.4); MONOCYTES 10.6 % (2-11); NEUTROPHILS 48.9 % (40-80); PLATELET COUNT 241 10x3/uL (130-400); RBC 4.03 10x6/uL (4.20-6.10); RDW 15.7 % (11.5-14.5); WBC 5.7 10x3/uL (4.8-10.8)
[2017-11-02] MEDS ORDERED: IPRAT-ALBUT 0.5-3 ML UPD (08:41)
[2017-11-02] MEDS ORDERED: LINZESS145 MCG PO (08:42)
[2017-11-02] MEDS ORDERED: ACETAMINOPHEN325 MG PO (08:44)
[2017-11-02 09:33] LABS: ANION GAP 11.6 mmol/L (8-16); CALCIUM 9.3 mg/dL (8.5-10.1); CARBON DIOXIDE 30.3 mmol/L (21.0-32.0); CREATININE - SERUM 1.1 mg/dL (0.6-1.3); POTASSIUM - SERUM 3.9 mmol/L (3.5-5.1)
[2017-11-02] MEDS ORDERED: PLAVIX75 MG PO (10:20)
== END 2017-11-02 14:15 | disposition home or self-care (01) ==
LOC: D.CATH 07:54
PROVIDERS: Internal Medicine Interventional Cardiology
DX: I25.119 Atherosclerotic heart disease of native coronary artery with unspecified angina pectoris (principal); I10 Essential (primary) hypertension; Z01.812 Encounter for preprocedural laboratory examination
CPT/HCPCS: 93458; C9600

== ENCOUNTER 2017-11-05 07:51 | Outpatient (CLI) | payer MEDICARE, OTHER ==
[~2017-11-05] VITALS: Ht 193 cm; Wt 90.9 kg
--- NOTE | ~2017-11-05 | HEMODYNAMI ---
PATIENT:SEBASTIAN GUPTA MEDICAL RECORD: [id number] : 34 LOCATION:DKimCAT ADMISSION DATE: 11/05/17 Generatedon:11/05/201710:58 Patient name: SBEASTIAN GUPTA Patient #: [id number] SSN: : 1930 Date of study: 11/05/2017 Page: Of Hemodynamic Procedure Report Patient Data Patient Demographics Procedure consent was obtained First Name: SEBASTIAN Gender: Male Last Name: ALONSO : 1930 [facility] Initial: R Age: 87 year(s) Patient #: [id number] Race: Additional ID: [id number] Contact details Address: [address] [place] [address] State: [place] City: [place] Zip code: [address] Past Medical History History of disease Date Diagnosis Comments CAD Hypertension Arrhythmias - Ventricular tachycardias (VT)->Premature ventricular complexes (PVC) Allergies Allergen Reaction Date Comments Reported Penicillins 03/19/2015 ZENY inhibitors 09/22/2015 Other allergy 11/02/2017 PCN, Atenolol, ZENY Inhibitors ZENY inhibitors 11/05/2017 Penicillins 11/05/2017 Other allergy 11/05/2017 ATENELOL Admission Admission Data Admission Date: 11/05/2017 Admission Time: 10:00 Lab Results Lab Result Date: 11/05/2017 Lab Result Time: 8:35 Biochemistry Name Units Result Min Max BUN mg/dl 15 --(--*-)-- 7 18 Creatinine mg/dl 0.9 --(-*--)-- 0.6 1.3 CBC Name Units Result Min Max Hematocrit % 36.5 *-(----)-- 42 54 Hemoglobin g/dl 11.8 *-(----)-- 13.5 17.5 Procedure Procedure Types Cath Procedure Diagnostic Procedure [facility] PCI Procedure Coronary Stent Coronary Stent Initial Procedure Description Procedure Date Procedure Date: 11/05/2017 Procedure Start Time: 10:32 Procedure End Time: 10:56 Procedure Staff Name Function Tahir Partida MD Performing Physician Gary Goldman RT Monitor Abdelrahman Breaux RT Scrub Melany Sparrow RN Nurse Procedure Data Cath Procedure Fluoroscopy Diagnostic fluoroscopy Total fluoroscopy Time: 3.8 time: 3.8 min min Diagnostic fluoroscopy Total fluoroscopy dose: 241 dose: 241 mGy mGy Contrast Material Contrast Material Type Amount (ml) Isovue 300 44 Entry Location Entry Primary Successful Side Size Upsize Upsize Entry Closure Succes sful Closure Location (Fr) 1 (Fr) 2 (Fr) Remarks Device Remarks Femoral Left 6 Fr Exoseal artery Short Estimated blood loss: 10 ml Procedure Medications Medication Administration Route Dosage Oxygen NC 2 l/min Lidocaine 2% added to field 20 Heparin Flush Bag added to field 2 bags (1000units/500ml NS) 0.9% NaCl I.V. 100 ml/hr Versed I.V. 0.25 mg Fentanyl I.V. 12.5 mcg Heparin Bolus I.V. 4000 units Hemodynamics Rest HGB: 11.8 (g/dl) Heart Rate: 68 (bpm) Snapshots Pre Cath Intra NCS Post Cath Vital Signs Time Heart Resp SPO2 etCO2 NIBP (mmHg) Rhythm Pain Sedation Rate (ipm) (%) (mmHg) Status Level (bpm) 10:04:15 69 14 98 0 153/86(139) NSR 0 (11) 10(A) , No pain 10:09:04 68 16 100 25.6 162/86(142) NSR 0 (11) 10(A) , No pain 10:13:51 69 17 100 26.3 166/92(130) NSR 0 (11) 10(A) , No pain 10:18:40 69 15 98 30.1 146/72(114) NSR 0 (11) 10(A) , No pain 10:23:26 72 15 98 33.9 149/72(117) NSR 0 (11) 10(A) , No pain 10:28:11 70 13 99 27.8 136/77(111) NSR 0 (11) 10(A) , No pain 10:33:32 73 14 99 33.9 152/80(119) NSR 0 (11) 9(A) , No pain 10:38:17 73 16 99 36.1 138/77(112) NSR 0 (11) 9(A) , No pain 10:43:00 72 16 100 27.8 153/88(133) NSR 0 (11) 10(A) , No pain 10:47:59 78 16 99 27.1 Measuring NSR 0 (11) 10(A) , No pain 10:48:32 78 16 99 29.3 184/113(155) NSR 0 (11) 10(A) , No pain 10:53:31 82 14 98 30.8 Measuring NSR 0 (11) 10(A) , No pain 10:55:13 73 23 99 33.9 186/93(154) NSR 0 (11) 10(A) , No pain Medications Time Medication Route Dose Verified Delivered Reason Notes Effectiveness by by 10:09:53 Oxygen NC 2 Tahir Tahir used for l/min Helga Partida MD procedure 10:10:00 Lidocaine 2% added 20ml Tahir Tahir for local to vial Helga Partida MD anesthetic field 10:10:05 Heparin Flush added 2 Tahiragustin Ramirezrey used for Bag to bags Helga Partida MD procedure (1000units/500ml field NS) 10:10:13 0.9% NaCl I.V. 100 Tahri Mosley Per physician ml/hr Helga Sparrow RN 10:29:01 Fentanyl I.V. 12.5 Tahir Mosley for sedation mcg Helga Sparrow RN 10:29:48 Versed I.V. 0.25 Tahir Mosley for sedation mg Helga Sparrow RN 10:34:10 Heparin Bolus I.V. 4000 Tahir Mosley for verifi ed units Helga Sparrow RN anticoagulation with dr partida Procedure Log Time Note 9:43:12 Informed consent obtained and on chart 9:43:16 Diagnostic Cath Status : Elective 9:45:51 Gary Goldman RT(R) (CV) sent for patient. Start room use. 9:45:52 Time tracking: Regular hours 9:45:56 Plan of Care:Hemodynamics will remain stable., Cardiac rhythm will remain stable., Comfort level will be maintained., Respiratory function will remain adequate., Patient/ family verbilizes understanding of procedure., Procedure tolerated without complication., Recovers from procedure without complications.. 9:46:51 H&P Date Dictated: 10/20/2017 Within 30 days and on chart., H&P Addendum completed by physician on day of procedure. (MUST COMPLETE FOR ALL OUTPATIENTS). 9:51:17 Lab Result : BUN 15 mg/dl 9:: Lab Result : Creatinine 0.9 mg/dl :51:17 Lab Result : Hemoglobin 11.8 g/dl 9:51:17 Lab Result : Hematocrit 36.5 % 9:52:19 Patient received from Pre/Post Procedure Room to CCL 1 Alert and oriented. Tansferred to table in Supine position. 9:52:20 Warm blankets applied, and edward hugger turned on for patient comfort. 9:52:21 Correct patient and procedure confirmed by team. 9:52:21 ECG and BP/O2 sat monitors applied to patient. 9:52:23 Pre-procedure instructions explained to patient. 9:52:23 Pre-op teaching completed and patient verbalized understanding. 9:52:24 Family in waiting room. 9:52:26 Patient NPO since Midnight. 10:03:12 Vital chart was started 10:03:14 Baseline sample Acquired. 10:03:26 Baseline sample Acquired. 10:03:34 Rhythm: sinus rhythm 10:03:37 Full Disclosure recording started 10:04:02 Patient allergic to ZENY inhibitors 10:04:10 Patient allergic to Penicillins 10:04:32 Patient allergic to Other allergyATENELOL 10:04:56 Is the patient allergic to Iodine/contrast media? No. 10:05:00 Is patient on blood thinner?Yes 10:05:04 ACC The patient was administered the following blood thiners within the last 24 hours: ACCPlavix 10:06:17 Patient diabetic? No. 10:06:41 ----Pre-sedation anethsthesia assessment.---- 10:06:44 Previous problem with sedation/anesthesia? No ? 10:06:46 Snore? Yes 10:06:47 Sleep apnea? Yes 10:06:48 Deviated septum? No 10:06:49 Opens mouth fully? Yes 10:06:50 Sticks out tongue? Yes 10:06:53 Airway obstruction? No ? 10:07:04 Dentures? Yes IN TIGHT 10:07:12 Pre procedure: left dorsailis pedis pulse 2+ Normal; easily identifiable; not easily obliterated 10:07:16 Patient pain scale 0/10 ?. 10:07:26 IV patent on arrival in left hand with 0.9% NaCl at [facility]. 10:07:31 Lab results completed and on chart. 10:07:36 Left groin area was prepped with chlora-prep and draped in sterile fashion 10:07:38 Alarms reviewed by R. N. 10:07:38 Sharps counted by scrub and verified by R.N. 10:09:53 Oxygen 2 l/min NC was administered by Tahir Partida MD; used for procedure; 10:10:00 Lidocaine 2% 20ml vial added to field was administered by Tahir Partida MD; for local anesthetic; 10:10:05 Heparin Flush Bag (1000units/500ml NS) 2 bags added to field was administered by Tahir Partida MD; used for procedure; 10:10:13 0.9% NaCl 100 ml/hr I.V. was administered by Melany Sparrow RN; Per physician; 10:10:28 Use device set TAUTH PCI 10:11:28 INFLATOR Merit BasixCompak ([id number]) opened to sterile field. 10:11:31 SHEATH 6FR [place] (SRN128) opened to sterile field. 10:12:32 Use device set Femoral Dx 10:12:42 ACIST Syringe (43303) opened to sterile field. 10:12:43 Bag Decanter (2002S) opened to sterile field. 10:12:44 Medline Cath Pack ([id number]) opened to sterile field. 10:12:46 DIAGNOSTIC WIRE .035 260cm J wire (659308) opened to sterile field. 10:12:48 ACIST Hand Control (21205) opened to sterile field. 10:12:50 ACIST Manifold (19409) opened to sterile field. 10:15:02 Zero performed for pressure channel P1 10:17:22 Physician paged 10:28:19 Physician arrived 10:28:20 --------ALL STOP TIME OUT------ 10:28:20 Final Timeout: patient, procedure, and site verified with staff and physician. All members of the team are in agreement. 10:28:26 Left groin site verified by team. 10:28:42 Physical assessment completed. ASA score P 2 - A patient with mild systemic disease as per Tahir Partida MD. 10:28:46 Sedation plan: IV Moderate Sedation Medication:Versed, Fentanyl 10:29:01 Fentanyl 12.5 mcg I.V. was administered by Melany Sparrow RN; for sedation; 10::48 Versed 0.25 mg I.V. was administered by Melany Sparrow RN; for sedation; 10:31:03 Nickerson [place] IVUS Catheter (89349I) opened to sterile field. 10:31:41 WHISPER 190cm wire ([id number]) opened to sterile field. 10:32:11 GUIDE 6FR MB 2 catheter (LA6MB2) opened to sterile field. 10:32:19 Procedure started. 10:32:25 Local anesthetic to left femerol artery with Lidocaine 2% by Tahir Partida MD.INITIAL ACCESS ONLY 10:32:58 A 6 Fr Short sheath was inserted into the Left Femoral artery 10:33:07 6 Fr MB 2 guide catheter was inserted over the wire 10:34:10 Heparin Bolus 4000 units I.V. was administered by Melany Sparrow RN; for anticoagulation; verified with dr partida 10:35:32 WHISPER wire advanced. 10:35:39 Wire advanced across lesion. 10:35:59 IVUS catheter advanced over wire. 10:39:02 IVUS pass to RCA lesion performed. 10:39:05 IVUS catheter removed over wire. 10:39:24 PROXIMAL LESION 71% 10:40:09 Inflation Number: 1 A JEROMY RX 3.0 x 12 stent ([id number]) was prepped and advanced across the Dist RCA. The stent was deployed at 15 MILO for 0:10 (min:sec). 10:40:45 Stent catheter was removed intact over wire. 10:41:48 Inflation Number: 1 A JEROMY RX 4.0 x 12 stent ([id number]) was prepped and advanced across the Prox RCA. The stent was deployed at 17 MILO for 0:10 (min:sec). 10:42:32 STENT BALLOON INFLATED TO 17 MILO FOR MID LESION IN-STENT STENOSIS 10:42:36 Stent catheter was removed intact over wire. 10:43:12 Wire removed. 10:43:13 Guide catheter removed. 10:43:27 EXOSEAL 6Fr (EX600) opened to sterile field. 10:43:38 Tegaderm 4 x 4 (1626W) opened to sterile field. 10:44:06 Sheath removed intact; hemostasis achieved with Exoseal to the Left Femoral artery. 10:44:09 Procedure ended.(Physican Out) 10:44:16 Fluoroscopy time 03.80 minutes. 10:44:23 Flurop Dose total: 241 10:44:23 Fluoroscopy dose: 241 mGy 10:44:33 Contrast amount:Isovue 300 44ml. 10:46:18 Sharps counted by scrub and verified by R.N. 10:53:11 Femstop placed over the left femerol artery at 204 mmHg. Hemostasis achieved. 10:53:24 Post-procedure physical assessment completed. ASA score P 2 - A patient with mild systemic disease as per Tahir Partida MD. 10:53:29 Post procedure rhythm: sinus rhythm 10:53:33 Estimated blood loss: 10 ml 10:54:03 Procedure type changed to Cath procedure, Diagnostic procedure, LHC, PCI procedure, Coronary Stent, Coronary Stent Initial 10:55:25 Procedure and supply charges have been captured, reviewed, submitted and are correct. 10:55:29 Patient needs reinforcement of post procedure teaching. 10:55:57 Vital chart was stopped 10:56:10 See physician's report for complete and final results. 10:56:30 Report given to Pre/Post Procedure Room. 10:56:40 Patient transfered to Pre/Post Procedure Room with Stretcher. 10:56:43 Procedure ended. 10:56:43 Full Disclosure recording stopped 10:56:48 End room use (Document Last) Intervention Summary Intervention Notes Time ActionType Lesion and Equipment Used Action# Pressure Duration Attributes 10:40:09 Place stent Dist RCA JEROMY RX 3.0 x 1 15 00:10 12 stent ([id number]) 10:41:48 [address] stent Prox RCA JEROMY RX 4.0 x 1 17 00:10 12 stent ([id number]) Device Usage Item Name Manufacture Quantity Catalog Number Hospital Part Current Minimal Lot# / Charge Number Stock Stock Serial# Code INFLATOR Merit Merit 1 [id number] [id number] [id number] 15 Interviu Me ([id number]) SHEATH 6FR Terumo 1 [id number] 916996 422435 045698 40 [place] ([id number]) ACIST Syringe Acist 1 28046 459706 192271 884528 20 (95681) Medical Systems Inc Bag Decanter Microtek 1 2001S 152591 13893 137498 5 (2001S) Medical Inc. Medline Cath Cardinal 1 [id number] 667931 32091 210411 5 [facility] ([id number]) DIAGNOSTIC WIRE [place] 1 422885 955859 181079 738799 30 .035 260cm J wire (696674) ACIST Hand Acist 1 99153 632195 768116 339562 5 Control (95769) Medical Systems Inc ACIST Manifold Acist 1 56156 067484 384167 868846 5 (71325) [employer] Systems Inc Nickerson Nickerson 1 13421S 174990 694427 946433 8 [place] IVUS Catheter (13826J) WHISPER 190cm Cat 1 [id number] 079808 561425 383562 5 wire Vascular ([id number]) GUIDE 6FR MB 2 Medtronic 1 LA6MB2 039226 59613 753458 1 catheter (LA6MB2) JEROMY RX 3.0 x Medtronic 1 [id number] 121273 1259492 677243 5 [id number] 12 stent ([id number]) JEROMY RX 4.0 x Medtronic 1 [id number] 371498 5500176 219166 5 [id number] 12 stent ([id number]) EXOSEAL 6Fr Cardinal 1 EX600 463373 563756 581846 10 (EX600) Health Tegaderm 4 x 4 3M 1 1626W 340221 223629 032579 5 (1626W) Signature Audit [place] Stage Time Signature Unsigned Intra-Procedure 11/05/2017 Gary Goldman 10:58:32 AM RT(R) (CV) Signatures Monitor : Gary Goldman RT Signature : Date : Time : [facility] [address] [id number]
--- NOTE | ~2017-11-05 | HP ---
PATIENT: SEBASTIAN LAUREN MEDICAL RECORD: [id number] ACCOUNT: [id number] LOCATION:PRUDENCE : 34 ADMISSION DATE: 11/05/17 HISTORY AND PHYSICAL EXAMINATION DIAGNOSES: 1. Angina. 2. Coronary artery disease. 3. Recent percutaneous transluminal coronary angioplasty, stent of the left circumflex with significant disease of the right coronary artery. 4. Hypertension. 5. Hyperlipidemia. HISTORY OF PRESENT ILLNESS: Mr. Lauren presents with anginal symptomatology, found to have significant disease of the circumflex and RCA, underwent successful PTCA with stent of the circumflex. He is now brought back for PTCA stent of the RCA. REVIEW OF SYSTEMS: The patient reports easy bruising but reports no swollen glands. The patient reports no fever, no night sweats, no significant weight gain, no significant weight loss. No significant exercise tolerance. The patient reports no dry eyes, no irritation, no vision change. Patient reports no difficulty hearing and no ear pain. Patient reports no frequent nose bleeds or nose and sinus problems. Patient reports on arm pain on exertion. No shortness of breath while lying down. No history of heart murmur. Patient reports no cough, no wheezing or coughing up blood. Patient reports no abdominal pain, no vomiting. Normal appetite. No diarrhea and not vomiting blood. No nausea and no constipation. Patient reports no incontinence. No difficulty urinating. No hematuria. No increased frequency. Patient reports no muscle aches. No weakness, no arthralgias, no back pain. No swelling of the extremities. Patient reports no abnormal mole, no jaundice, no rashes. Reports no loss of consciousness. No weakness and no numbness. No seizures, dizziness, or headaches. The patient reports no depression, no sleep disturbance, feeling safe in a relationship and no alcohol abuse. Patient reports on fatigue. Reports no runny nose or sinus pressure. No itching, no hives, and no frequent sneezing. PHYSICAL EXAMINATION: GENERAL APPEARANCE: Well-nourished, well-developed, appears stated age. Level of distress, comfortable. PSYCHIATRIC: Mental status, alert, normal affect. Orientation, oriented to time, place and person. EYES: Lids and conjunctiva, noninjected. No discharge, no pallor. ENT: Lips, teeth, gums, normal dentition. Oropharynx, no cyanosis, no pallor. NECK: Carotid arteries, bilateral normal upstroke, no bruits, no thrills. JUGULAR VEINS: No jugular venous pressure or distention. CERVICAL LYMPH NODES: Nontender, nonenlarged. THYROID: Not enlarged. Nontender. No nodules. LUNGS: Respiratory effort, unlabored. CHEST: Normal curvature. No thoracic deformity. No chest wall tenderness. Percussion, resonant. Auscultation, clear. No wheezes, no rales, no rhonchi. CARDIOVASCULAR: Precordial exam, nondisplaced. No heaves or pericardial thrills. Rate and rhythm, regular. Heart sounds, normal S1, normal S2. No S3, no gallop, no rub. Systolic murmur, not heard. Diastolic murmur, not heard. EXTREMITIES: No cyanosis, no edema. Peripheral pulses, full and equal in all HISTORY AND PHYSICAL [id number] ALONSOSEBASTIAN R extremities, except as noted. No bruits appreciated. ABDOMEN: Soft, nondistended. Normal aorta. No bruit. Nontender. No masses. Liver, nontender, no hepatomegaly. Spleen, nontender, no splenomegaly. MUSCULOSKELETAL: No joint tenderness. No joint swelling. No erythema. NEUROLOGICAL: Normal gait, normal strength, normal tone. SKIN: Warm and dry. OVERALL IMPRESSION: Anginal symptomatology with significant disease of the right coronary artery. We will proceed with percutaneous transluminal coronary angioplasty, stent of the right coronary artery. TRANSINT:[id number] Voice Confirmation ID: [id number] DOCUMENT ID: [id number] MIAN AGUIRRE MD at 1324 CC: [id number] DICTATION DATE: 11/05/17 0954 AUTOMATIC DRILL OPERATOR: 11/05/[address] [place] [address] CLI 11/05/17 [address] [place] [address]
--- NOTE | ~2017-11-05 | OP ---
PATIENT NAME: SEBASTIAN GUPTA MEDICAL RECORD: [id number] :34 LOCATION:D.CAT ADMISSION DATE: SURGEON: MIAN AGUIRRE MD DATE OF OPERATION: 11/05/2017 PROCEDURES: 1. PTCA stent RCA. 2. Selective coronary angiography. INDICATION: Angina and coronary artery disease. PROCEDURE IN DETAIL: After informed consent was obtained and after detailed explanation of risks and benefits as well as alternative therapies, the patient elected to proceed with angiogram and angioplasty. The left femoral area was prepped and draped in normal sterile fashion. Left femoral artery was cannulated via modified Seldinger technique with placement of 6-Angolan sheath. All catheters exchanged through this sheath. INTRAVASCULAR ULTRASOUND: The right coronary has 71% stenosis proximally confirmed by intravascular ultrasound as well as greater than 70% in-stent restenosis in the mid vessel as well as a separate 80% stenosis in the mid distal vessel. The mid distal vessel was addressed with a 3.0 x 12 mm Freddie proximal vessel with 4.12 mm Freddie and 4-0 stent balloon was used for the in-stent restenosis in the mid vessel. Result was 0% residual throughout. OVERALL IMPRESSION: Successful percutaneous transluminal coronary angioplasty stent of the right coronary artery going from multiple lesions up to 80% initial stenosis to 0% residual. TRANSINT:[id number] Voice Confirmation ID: [id number] DOCUMENT ID: [id number] MIAN AGUIRER MD at 1324 CC: [id number] DICTATION DATE: 11/05/17 1048 CASH ON DELIVERY CLERK: 11/05/17 1[address] [facility] CLI 11/05/[address] [address]
[~2017-11-05 07:51] MED LIST changes: +ACETAMINOPHEN325 MG PO
[2017-11-05 08:24] VITALS: BP 148/58; Ht 193 cm; Wt 90.9 kg
[2017-11-05 08:41] LABS: BASOPHILS 0.7 % (0-2); EOSINOPHILS 6.7 % (0-7); HEMATOCRIT 36.5 % (42.0-54.0); HEMOGLOBIN 11.8 g/dL (13.5-17.5); IMMATURE GRANULOCYTES 0.2 % (0-5); MCHC 32.3 g/dL (31.0-37.0); MCV 92.9 fL (80.0-100.0); MEAN PLATELET VOLUME 9.6 fL (7.4-10.4); MONOCYTES 10.9 % (2-11); NEUTROPHILS 50.5 % (40-80); RBC 3.93 10x6/uL (4.20-6.10); RDW 15.5 % (11.5-14.5); WBC 5.5 10x3/uL (4.8-10.8)
[2017-11-05 08:49] LABS: PLATELET COUNT 192 10x3/uL (130-400)
[2017-11-05 08:57] LABS: CALC OSMOLALITY 280 mosm/kg (275-300); CALCIUM 9.4 mg/dL (8.5-10.1); CARBON DIOXIDE 23.1 mmol/L (21.0-32.0); CHLORIDE - SERUM 104 mmol/L (98-107); CREATININE - SERUM 0.9 mg/dL (0.6-1.3); GLUCOSE 132 mg/dL (74-106); POTASSIUM - SERUM 4.3 mmol/L (3.5-5.1); SODIUM 139 mmol/L (136-145); UREA NITROGEN 15 mg/dL (7-18); eGFR NON AFRICAN AMERICAN 85 mL/min (90-120)
== END 2017-11-05 14:45 | disposition home or self-care (01) ==
LOC: D.CATH 07:51
PROVIDERS: Internal Medicine Interventional Cardiology
DX: I25.119 Atherosclerotic heart disease of native coronary artery with unspecified angina pectoris (principal); T82.855A Stenosis of coronary artery stent, initial encounter; Z95.5 Presence of coronary angioplasty implant and graft; I10 Essential (primary) hypertension; E78.5 Hyperlipidemia, unspecified; Z01.812 Encounter for preprocedural laboratory examination
CPT/HCPCS: 92978; C9600

== ENCOUNTER 2018-04-18 15:32 | Emergency (ER) | payer MEDICARE, OTHER ==
[~2018-04-18] VITALS: Ht 193 cm; Wt 95.5 kg
[2018-04-18 15:34] VITALS: BP 161/75; Ht 193 cm; Wt 95.5 kg
== END 2018-04-20 17:58 | disposition home or self-care (01) ==
LOC: D.ER 15:32
DX: S00.81XA Abrasion of other part of head, initial encounter (principal); X58.XXXA Exposure to other specified factors, initial encounter; Y93.E1 Activity, personal bathing and showering; Y92.012 Bathroom of single-family (private) house as the place of occurrence of the external cause

== ENCOUNTER → 2019-10-09 11:16 | Outpatient (CLI) | payer MEDICARE, OTHER ==
[2018-04-18 15:34] VITALS: BMI 25.6
--- NOTE | 2019-10-12 15:25 | ST ---
PATIENT:SEBASTIAN GUPTA MEDICAL RECORD: [id number] SEX: M LOCATION:[facility] ORDER #: ADMISSION DATE: 10/09/19 AGE OF PATIENT: 89 REFERRING PHYSICIAN: INTERPRETING PHYSICIAN: MIAN AGUIRRE MD DATE OF SERVICE: 10/09/2019 INDICATION: Angina and coronary artery disease, shortness of breath. He was exercised on standard Vasquez protocol for 5 minutes achieving 100% max target heart rate response with 27 mCi of sestamibi injected at peak stress, 8 mCi used previously for rest images. FINDINGS: Gated SPECT reveals a decreased ejection fraction of 45% with decreased thickening and brightening throughout the inferior segments. SPECT imaging: Cardiolite was used as myocardial perfusion agent. There is a fixed perfusion defect inferiorly compatible with previous inferior myocardial infarction; however, there is reversible ischemia anteriorly and laterally. This includes the basal, mid, apical anterior segments as well as apical lateral, mid lateral, and basal lateral segments. The degree of reversibility is moderate. The amount of myocardium involved is very large between the defects. OVERALL IMPRESSION: This is a high risk markedly abnormal nuclear stress test suggestive of multivessel coronary artery disease. TRANSINT:[id number] Voice Confirmation ID: [id number] DOCUMENT ID: [id number] MIAN AGUIRRE MD at 1525 CC: GIFTY BOYLE MD [id number] DICTATION DATE: 10/10/19 1618 POUCH MAKER: 10/11/19 0736 [facility] CLI 10/09/19 [address] [place] [address]
== END | disposition home or self-care (01) ==
LOC: D.HCCARDIO 11:16
PROVIDERS: ATTEND Internal Medicine Interventional Cardiology
DX: I25.10 Atherosclerotic heart disease of native coronary artery without angina pectoris (principal)

== ENCOUNTER 2019-10-13 10:21 | Outpatient (CLI) | payer MEDICARE, OTHER ==
[~2019-10-13] VITALS: Ht 193 cm; Wt 100.0 kg
--- NOTE | ~2019-10-13 | HEMODYNAMI ---
PATIENT:SEBASTIAN GUPTA MEDICAL RECORD: [id number] : 34 LOCATION:D.CAT ADMISSION DATE: 10/13/19 Generatedon:10/16/20198:18 Patient name: SEBASTIAN GUPTA Patient #: [id number] SSN: : [id number] Date of study: 10/13/2019 Page: Of Hemodynamic Procedure Report Patient Data Patient Demographics Procedure consent was obtained First Name: SEBASTIAN Gender: Male Last Name: ALONSO : 1930 [facility] Initial: R Age: 89 year(s) Patient #: [id number] Race: Additional ID: [id number] Contact details [address]: [address] [place] [address] State: [place] City: [place] Zip code: [address] Past Medical History History of disease Date Diagnosis Comments CAD Hypertension Arrhythmias - Ventricular tachycardias (VT)->Premature ventricular complexes (PVC) Allergies Allergen Reaction Date Comments Reported Penicillins 03/19/2015 ZENY inhibitors 09/22/2015 Other allergy 11/02/2017 PCN, Atenolol, ZENY Inhibitors ZENY inhibitors 11/05/2017 Penicillins 11/05/2017 Other allergy 11/05/2017 ATENELOL Admission Admission Data Admission Date: 10/13/2019 Admission Time: 10:21 Height (in.): 76 BSA: 2.31 (m2) Height (cm.): 193.04 BMI: 26.84 (kg/m2) Weight (lbs.): 220.46 Weight (kg.): 100 Lab Results Lab Result Date: 10/13/2019 Lab Result Time: 0:00 Biochemistry Name Units Result Min Max BUN mg/dl 14 --(--*-)-- 7 18 Creatinine mg/dl 1.1 --(--*-)-- 0.6 1.3 CBC Name Units Result Min Max Hemoglobin g/dl 13.7 --(*---)-- 13.5 17.5 Procedure Procedure Types Cath Procedure Diagnostic Procedure LHC LHC w/Coronaries FFR/IVUS FFR Initial PCI Procedure Coronary Stent Coronary Stent Initial x2 Hemochron ACT Test Procedure Description Procedure Date Procedure Date: 10/13/2019 Procedure Start Time: 13:46 Procedure End Time: 14:23 Procedure Staff Name Function Max Toussaint RT Monitor Tahir Partida MD Performing Physician Farheen Junior RN Nurse Royal Pack RT Scrub Procedure Data Cath Procedure Fluoroscopy Diagnostic fluoroscopy Total fluoroscopy Time: time: 11.1 min 11.1 min Diagnostic fluoroscopy Total fluoroscopy dose: dose: 866.55 mGy 866.55 mGy Contrast Material Contrast Material Type Amount (ml) Isovue 370 165 Entry Location Entry Primary Successful Side Size Upsize Upsize Entry Closure Succes sful Closure Location (Fr) 1 (Fr) 2 (Fr) Remarks Device Remarks Femoral Right 5 Fr 6 Fr Exoseal artery Short Estimated blood loss: 10 ml Diagnostic catheters Device Type Used For End Catheter Placement MULTIPACK Pigtail 5 Fr Procedure catheter MULTIPACK JL 4.0 5Fr Procedure catheter MULTIPACK 3DRC 5Fr Procedure catheter Procedure Complications No complications Procedure Medications Medication Administration Route Dosage Oxygen NC 2 l/min Lidocaine 2% added to field 20 Heparin Flush Bag added to field 2 bags (1000units/500ml NS) 0.9% NaCl I.V. 100 ml/hr Versed I.V. 1 mg Fentanyl I.V. 50 mcg Heparin Bolus I.V. 4000 units Integrilin (Bolus I.V. 9 ml 2mg/ml) Integrilin (Bolus wasted 1 ml 2mg/ml) Hemodynamics Rest BSA: 2.31 (m2) HGB: 13.7 (g/dl) O2 Consumption: Estimated: 258.46 (ml/min) O2 Co nsumption indexed: Estimated:111.89 (ml/min/m) Heart Rate: 66 (bpm) Snapshots Pre Cath Intra NCS Post Cath Vital Signs Time Heart Resp SPO2 etCO2 NIBP (mmHg) Rhythm Pain Sedation Rate (ipm) (%) (mmHg) Status Level (bpm) 13:33:34 71 11 99 37.9 201/99(132) NSR (Missing) 10(A) 13:37:58 68 19 100 20.4 189/89(149) NSR (Missing) 10(A) 13:42:26 69 12 95 0 149/78(126) NSR (Missing) 10(A) 13:46:42 64 13 96 23.5 155/83(133) NSR (Missing) 9(A) 13:50:58 74 12 97 23.5 155/85(127) NSR (Missing) 9(A) 13:55:14 77 12 98 25.7 152/76(131) NSR (Missing) 9(A) 13:59:34 80 11 98 9.8 152/78(122) NSR (Missing) 9(A) 14:03:53 78 12 98 9 166/83(115) NSR (Missing) 9(A) 14:08:04 78 12 98 17.4 160/97(139) NSR (Missing) 9(A) 14:12:20 81 13 98 16.6 169/97(141) NSR (Missing) 9(A) 14:16:43 77 13 97 14.4 173/94(149) NSR (Missing) 9(A) 14:21:05 77 13 98 11.3 174/96(147) NSR (Missing) 9(A) 14:26:33 74 12 98 22.7 171/92(131) NSR (Missing) 10(A) Medications Time Medication Route Dose Verified Delivered Reason Notes Ef fectiveness by by 13:31:33 Oxygen NC 2 Tahir Farheen for low 02 l/min Helga Mcclellanor sats RN 13:31:41 Lidocaine 2% added 20ml Tahir Farheen for local to vial Helga Mcclellanor anesthetic field RN 13:31:54 Heparin Flush added 2 Tahir Farheen used for Bag to bags Helga Junior procedure (1000units/500ml field RN NS) 13:32:10 0.9% NaCl I.V. 100 Tahir Farheen used for ml/hr Helga Junior excavating supervisor 13:41:09 Versed I.V. 1 mg Tahir Farheen for Helga Rayoelor sedation RN 13:41:16 Fentanyl I.V. 50 Tahir Farheen for mcg Helga Rayoelor sedation RN 13:52:47 Heparin Bolus I.V. 4000 Tahir Farheen Per verified units Helga Rayoelor physician with dr. MICHAEL partida 13:54:08 Integrilin I.V. 9 ml Tahir Farheen Per verified (Bolus 2mg/ml) Helga Junior physician with dr. MICHAEL partida 13:54:22 Integrilin wasted 1 ml Tahir Zhong Per verified (Bolus 2mg/ml) Helga Junior physician with dr. MICHAEL partida Procedure Log Time Note 13:10:14 Royal Pack RT(R) sent for patient. Start room use. 13:14:52 Patient Height : 76 inches 13:15:03 Patient Weight : 220.46 lbs 13:15:30 Lab Result : Hemoglobin 13.7 g/dl 13:15:30 Lab Result : Creatinine 1.1 mg/dl 13:15:30 Lab Result : BUN 14 mg/dl 13:18:21 Time tracking: Regular hours (M-F 7:00 - 5:00) 13:18:24 Plan of Care:Hemodynamics will remain stable., Cardiac rhythm will remain stable., Comfort level will be maintained., Respiratory function will remain adequate., Patient/ family verbilizes understanding of procedure., Procedure tolerated without complication., Recovers from procedure without complications.. 13:18:45 Risk of Mortality: 0.7 13:18:47 Risk of blood transfusion: 1 13:18:50 Risk of RUBY: 2.7 13:20:10 Stress Test: yes; abnormal due to symptomatology as well as PVCs with worsening of his T wave inversion. 13:25:03 Patient received from Pre/Post Procedure Room to CCL 3 Alert and oriented. Tansferred to table in Supine position. 13:25:05 Signed procedure consent form obtained from patient. 13:25:06 Correct patient and procedure confirmed by team. 13:25:06 Warm blankets applied, and edward hugger turned on for patient comfort. 13:25:07 ECG and BP/O2 sat monitors applied to patient. 13:28:51 2) 60-89 Mildly reduced kidney function, and other findings (as for stage 1) point to kidney disease. 13:28:54 Maximum allowable contrast dose (3.7 X eGFR X 0.75)186 ml. 13:31:19 Vital chart was started 13:31:33 Oxygen 2 l/min NC was administered by Farheen Junior RN; for low 02 sats; Verbal order read back and verified. 13:31:41 Lidocaine 2% 20ml vial added to field was administered by Farheen Junior RN; for local anesthetic; Verbal order read back and verified. 13:31:54 Heparin Flush Bag (1000units/500ml NS) 2 bags added to field was administered by Farheen Junior RN; used for procedure; Verbal order read back and verified. 13:32:10 0.9% NaCl 100 ml/hr I.V. was administered by Farheen Junior RN; used for procedure; Verbal order read back and verified. 13:37:19 Baseline sample Acquired. 13:37:25 Rhythm: sinus rhythm 13:37:26 Full Disclosure recording started 13:37:32 H&P Date Dictated: 10/03/2019 Within 30 days and on chart., H&P Addendum completed by physician on day of procedure. (MUST COMPLETE FOR ALL OUTPATIENTS). 13:37:33 Pre-op teaching completed and patient verbalized understanding. 13:37:33 Pre-procedure instructions explained to patient. 13:37:34 Family in patients room. 13:37:35 Patient NPO since Midnight. 13:37:37 Is the patient allergic to Iodine/contrast media? No. 13:37:41 Is patient on blood thinner?No 13:37:44 ACC The patient was administered the following blood thiners within the last 24 hours: None 13:37:49 Patient diabetic? No. 13:38:00 Previous problem with sedation/anesthesia? No ? 13:38:01 Snore? Yes 13:38:03 Sleep apnea? Yes 13:38:04 Deviated septum? No 13:38:05 Opens mouth fully? Yes 13:38:06 Sticks out tongue? Yes 13:38:08 Airway obstruction? No ? 13:38:15 Dentures? Yes IN TIGHT 13:38:19 Pre procedure: right dorsailis pedis pulse 1+ Palpable, but thready & weak; easily obliterated 13:38:26 Modified Nick's test Ulnar > 7 seconds. 13:38:28 Patient pain scale 0/10 ?. 13:38:55 IV patent on arrival in left hand with 0.9% NaCl at [facility]. 13:39:01 Right groin area was prepped with chlora-prep and draped in sterile fashion 13:39:02 Sharps counted by scrub and verified by R.N. 13:39:02 Alarms reviewed by R. N. 13:39:22 Physician arrived 13:39:23 --------ALL STOP TIME OUT------ 13:39:24 Final Timeout: patient, procedure, and site verified with staff and physician. All members of the team are in agreement. 13:39:32 Right groin site verified by team. 13:39:37 Fire Safety Assessment: A--An alcohol-based skin anteseptic being used preoperatively., C--Open oxygen or nitrous oxide is being used., D--An ESU, laser, or fiber-optic light is being used. 13:39:40 Physical assessment completed. ASA score P 2 - A patient with mild systemic disease as per Tahir Partida MD. 13:39:43 Sedation plan: IV Moderate Sedation Medication:Versed, Fentanyl 13:41:09 Use device set Femoral Dx 13:41:09 Versed 1 mg I.V. was administered by Farheen Junior RN; for sedation; Verbal order read back and verified. 13:41:10 ACIST Syringe (97206) opened to sterile field. 13:41:11 Medline Cath Pack ([id number]) opened to sterile field. 13:41:11 Bag Decanter (2002S) opened to sterile field. 13:41:12 ACIST Hand Control (59907) opened to sterile field. 13:41:13 ACIST Manifold (84619) opened to sterile field. 13:41:14 Tegaderm 4 x 4 (1626W) opened to sterile field. 13:41:15 DIAGNOSTIC Multipack 5Fr catheter set (KZ3677) opened to sterile field. 13:41:16 Fentanyl 50 mcg I.V. was administered by Farheen Junior RN; for sedation; Verbal order read back and verified. 13:41:18 EMERALD Guide Wire (501-648) opened to sterile field. 13:41:18 SHEATH 5FR Nichols (DRF370) opened to sterile field. 13:46:13 Procedure started. 13:46:22 Local anesthetic to right femoral artery with Lidocaine 2% by Tahir Partida MD.INITIAL ACCESS ONLY 13:46:39 Zero performed for pressure channel P1 13:47:16 A 5 Fr sheath was inserted into the Right Femoral artery 13:47:30 A MULTIPACK Pigtail 5 Fr catheter was advanced over the wire and used for Procedure. 13:47:33 LV angiography performed. 13:47:34 LV gram done using MACDONALD 13:47:38 EF : 20 % 13:47:44 Injector settings: Ml/sec: 10, Volume: 20, 13:47:45 Catheter removed. 13:47:56 A MULTIPACK JL 4.0 5Fr catheter was advanced over the wire and used for Procedure. 13:48:23 LCA angiography performed. 13:49:00 Catheter removed. 13:49:08 A MULTIPACK 3DRC 5Fr catheter was advanced over the wire and used for Procedure. 13:49:13 Use device set [facility] PCI 13:49:15 SHEATH 6FR Nichols ([id number]) opened to sterile field. 13:49:18 INFLATOR Merit BasixCompak (PV0073) opened to sterile field. 13:49:21 CHOICE PT Extra Support 182cm wire ([id number]) opened to sterile field. 13:49:27 [place] Verrata Plus pressure wire (45378I) opened to sterile field. 13:49:48 RCA angiography performed. 13:49:50 ACCDominant side:Right 13:49:54 Catheter removed. 13:52:23 GUIDE 6FR EBU 3.5 catheter ([id number]) opened to sterile field. 13:52:34 GUIDE 6FR MB 2 catheter (LA6MB2) opened to sterile field. 13:52:47 Heparin Bolus 4000 units I.V. was administered by Farheen Junior RN; Per physician; verified with dr. partida Verbal order read back and verified. 13:52:48 Sheath upsized to a 6 Fr Short. 13:52:54 6 Fr MB 2 guide catheter was inserted over the wire 13:53:01 FFR/IFR wire advanced. 13:54:08 Wire advanced across lesion. 13:54:08 Integrilin (Bolus 2mg/ml) 9 ml I.V. was administered by Farheen Junior RN; Per physician; verified with dr. partida Verbal order read back and verified. 13:54:22 Integrilin (Bolus 2mg/ml) 1 ml wasted was administered by Farheen Junior RN; Per physician; verified with dr. partida Verbal order read back and verified. 13:55:17 PDA lesion measured at 0.91 with IFR 13:56:02 PDA lesion measured at 0.92 with IFR 13:56:07 Wire removed. 13:56:09 Guide catheter removed. 13:56:17 6 Fr EBU 3.5 guide catheter was inserted over the wire 13:57:29 FFR/IFR wire advanced. 14:00:26 Verrata wire damaged, wire removed. New Verrata wire opened and advanced. 14:01:12 [place] Verrata Plus pressure wire (23090F) opened to sterile field. 14:02:00 Pre PCI Site: [place] Diag1 has 99% stenosis. 14:02:00 ACC Pre-intervention JESUS ALBERTO Flow is 3. 14:02:27 Unable to cross lesion with Verrata wire. Wire removed. 14:02:36 CPTXS wire advanced. 14:03:28 Wire removed. unable to cross lesion. 14:03:36 CHOICE PT Extra Support 182cm wire ([id number]) opened to sterile field. 14:04:19 CPTXS wire advanced. 14:04:41 Wire advanced across lesion. 14:07:20 The JEROMY RX 2.25 x 15 stent ([id number]) was advanced then removed because of failure to cross lesion 14:07:57 Inflate balloon Inflation number: 1 A EUPHORA 2.5 x 15 Balloon ([id number]) was prepped and advanced across the 1st Diag 99, then inflated to 11 MILO for 0:10 (min:sec) 0. 14:08:42 Multiple inflations made at 13 Atms. 14:08:45 Balloon removed over the wire. 14:09:37 Place stent Inflation Number: 2 A JEROMY RX 2.25 x 15 stent ([id number]) was prepped and advanced across the 1st Diag 0. The stent was deployed at 13 MILO for 0:10 (min:sec) 0. 14:10:20 Inflation number: 3 The stent balloon was then re-inflated across the 1st Diag 0 to 13 MILO for 0:10 (min:sec) . 14:10:49 Wire removed. 14:10:49 Stent catheter was removed intact over wire. 14:12:01 CHOICE PT Extra Support 182cm wire ([id number]) opened to sterile field. 14:13:45 ACC Post-intervention JESUS ALBERTO Flow is 3. 14:13:52 Post PCI Site: [place] Diag1 has 0% stenosis. 14:13:57 New CPTXS wire advanced. 14:14:02 Wire advanced across lesion. 14:14:04 ACC Pre-intervention JESUS ALBERTO Flow is 3. 14:14:10 Pre PCI Site: [place] pCirc has 90% stenosis. 14:14:57 Inflation number: 1 The EUPHORA 2.5 x 15 Balloon ([id number]) was reinflated across the Prox CX 90, to 13 MILO for 0:10 (min:sec) 0. 14:16:00 Balloon removed over the wire. 14:16:41 Place stent Inflation Number: 2 A JEROMY RX 2.5 x 12 stent ([id number]) was prepped and advanced across the Prox CX 90. The stent was deployed at 21 MILO for 0:10 (min:sec) 0. 14:17:16 EXOSEAL 6Fr (EX600) opened to sterile field. 14:17:26 ACC Post-intervention JESUS ALBERTO Flow is 3. 14:17:33 Post PCI Site: [place] pCirc has 0% stenosis. 14:17:38 Stent catheter was removed intact over wire. 14:17:39 Wire removed. 14:17:40 Guide catheter removed. 14:18:00 ACT drawn and resulted at OUT OF RANG (HIGH) seconds. (normal therapeutic range 180-240 seconds). 14:18:26 Sheath removed intact; hemostasis achieved with Exoseal to the Right Femoral artery. 14:18:28 Procedure ended.(Physican Out) 14:19:14 Fluoroscopy time 11.10 minutes. 14:19:19 Flurop Dose total: 866.55 14:19:19 Fluoroscopy dose: 866.55 mGy 14:19:24 Dose Area Product 5057.01 mGy/cm. 14:19:30 Contrast amount:Isovue 370 165ml. 14:19:34 Maximum allowable dose exceeded? No. 14:19:38 Sharps counted by scrub and verified by R.N. 14:19:59 Insertion/operative site no bleeding no hematoma. 14:20:04 Post-op/insertion site Right Femoral artery dressed using a 4 x 4 and Tegaderm. 14:20:05 Post Procedure Pulses reassessed and unchanged 14:20:08 Post-procedure physical assessment completed. ASA score P 2 - A patient with mild systemic disease as per Tahir Partida MD. 14:20:11 Post procedure rhythm: unchanged. 14:20:14 Estimated blood loss: 10 ml 14:20:16 Patient needs reinforcement of post procedure teaching. 14:20:16 Post procedure instruction explained to patient.Patient verbalizes understanding. 14:20:34 Procedure type changed to Cath procedure, Diagnostic procedure, LHC, C w/Coronaries, FFR/IVUS, FFR Initial, PCI procedure, Coronary Stent, Coronary Stent Initial x2, Hemochron ACT Test 14:20:35 Procedure and supply charges have been captured, reviewed, submitted and are correct. 14:20:38 Procedure Complication : No complications 14:20:44 [facility] Findings: MVD- PCI performed (see procedure note) 14:20:45 Operative report dictated upon procedure completion. 14:20:46 See physician's report for complete and final results. 14:20:48 Report given to Pre/Post Procedure Room. 14:20:52 Patient transfered to Pre/Post Procedure Room with Stretcher. 14:23:31 Vital chart was stopped 14:23:35 Procedure ended. 14:23:35 Full Disclosure recording stopped 14:25:27 CHOICE PT Extra Support 182cm wire ([id number]) opened to sterile field. 14:26:19 End room use (Document Last) 14:28:08 End room use (Document Last) 14:28:41 End room use (Document Last) Intervention Summary Intervention Notes Time ActionType Lesion and Equipment Used Action# Pressure Duration Attributes 14:07:20 Discard JEROMY RX 2.25 x Stent 15 stent ([id number]) 14:07:57 Inflate 1st Diag EUPHORA 2.5 x 1 11 00:10 balloon 15 Balloon ([id number]) 14:09:37 Place stent 1st Diag JEROMY RX 2.25 x 2 13 00:10 15 stent ([id number]) 14:10:20 Reinflate 1st Diag JEROMY RX 2.25 x 3 13 00:10 stent 15 stent balloon ([id number]) 14:14:57 Reinflate Prox CX EUPHORA 2.5 x 1 13 00:10 balloon 15 Balloon ([id number]) 14:16:41 Place stent Prox CX JEROMY RX 2.5 x 2 21 00:10 12 stent ([id number]) Device Usage Item Name Manufacture Quantity Catalog Hospital Part Current Minimal Lot# / Number Charge Number Stock Stock Serial# Code ACIST Syringe Acist 1 31286 436373 558610 453230 20 (02799) Medical Systems [employer] Bag Decanter Microtek 1 2001S 749309 33374 546633 5 (2001S) Medical Inc. Medline Cath Medline 1 [id number] 619401 96283 311497 5 Pack ([id number]) ACIST Hand Acist 1 22019 833511 471852 078061 5 Control Medical (83828) Systems Inc ACIST Manifold Acist 1 43294 388452 561157 998264 5 (88584) Medical Systems [employer]. Tegaderm 4 x 4 3M 1 1626W 665103 228288 162229 5 (1626W) DIAGNOSTIC Cardinal 1 ET2475 699397 17471 464075 30 Multipack 5Fr Health catheter set (TK5072) SHEATH 5FR Terumo 1 AWO422 057269 388800 839409 5 Nichols (TZM430) EMERALD Guide Cardinal 1 502-455 173373 238078 594457 5 Wire (502-455) Health MULTIPACK Cardinal 1 719538 5 Pigtail 5 Fr Health catheter MULTIPACK JL Cardinal 1 156919 5 4.0 5Fr Health catheter MULTIPACK 3DRC Cardinal 1 426422 5 5Fr catheter Health SHEATH 6FR Terumo 1 KGA953 059656 703601 255466 40 Nichols (MTN401) INFLATOR Merit Merit 1 IJ9115 314547 253707 059513 15 [facility] (QO5324) CHOICE PT Gaston 4 [id number] 703459 765532 850128 5 Extra Support Scientific 182cm wire ([id number]) [place] 2 64310U 365927 644044107 682067 5 Verrata Plus pressure wire (53993I) GUIDE 6FR EBU Medtronic 1 [id number] 889632 68784 576040 3 3.5 catheter ([id number]) GUIDE 6FR MB 2 Medtronic 1 LA6MB2 160387 03885 514037 1 catheter (LA6MB2) JEROMY RX 2.25 x Medtronic 1 [id number] 962853 6565336 054470 5 [id number] 15 stent ([id number]) EUPHORA 2.5 x Medtronic 1 [id number] 465131 326793 446793 5 [id number] 15 Balloon ([id number]) JEROMY RX 2.5 x Medtronic 1 [id number] 514784 3359131 358329 5 [id number] 12 stent ([id number]) EXOSEAL 6Fr Cardinal 1 EX600 078843 113082 929949 10 (EX600) Health Signature Audit [place] Stage Time Signature Unsigned Intra-Procedure 10/13/2019 Max Toussaint 2:28:09 PM RT(R) Intra-Procedure 10/13/2019 Farheen 2:28:41 PM Vernon RODRIGUEZ Intra-Procedure 10/13/2019 Tahir Toussaint RT(R) 2:29:03 PM 10/16/2019 8:17:14 AM Intra-Procedure 10/16/2019 Tahir Partida 8:18:41 AM [place] [address] [place] [address]
--- NOTE | ~2019-10-13 | OP ---
PATIENT NAME: SEBASTIAN GUPTA MEDICAL RECORD: [id number] :34 LOCATION:D.CAT ADMISSION DATE: SURGEON: MIAN AGUIRRE MD DATE OF OPERATION: 10/13/2019 PROCEDURES: 1. PTCA stent left circumflex. 2. PTCA stent LAD. 3. IFR RCA. 4. Left heart catheterization. 5. Selective coronary angiography. 6. Left ventriculogram. INDICATION: Angina and coronary artery disease. PROCEDURE IN DETAIL: After informed consent was obtained and after a detailed description of risks, benefits as well as alternative therapies, the patient elected to proceed with angiogram and angioplasty. The right radial area was prepped and draped in normal sterile fashion. Right radial artery was cannulated via modified Seldinger technique with placement of 6-Czech sheath. All catheters exchanged through this sheath. FINDINGS: Left ventriculogram was performed in standard 30-degree MACDONALD view, reveals preserved wall motion, ejection fraction 55%. SELECTIVE CORONARY ANGIOGRAPHY: 1. Left main is with no significant angiographic disease. 2. Left anterior descending has the large diagonal system, larger than the LAD itself with 99% stenosis. 3. The left circumflex has a 90% stenosis at the ostium. 4. The right coronary has a questionable stenosis at the PDA; however, IFR was normal at 0.91. PTCA STENT OF THE LAD DIAGONAL: The stent used was a 2.5 x 15 [place]. Result was 0% residual stenosis. PTCA STENT OF THE LEFT CIRCUMFLEX: The circumflex was addressed with a 2.5 x 12 mm Partlow. Result was 0% residual stenosis. OVERALL IMPRESSION: Successful percutaneous transluminal angioplasty stent of the left circumflex and left anterior descending diagonal going from 90% to 99% initial stenosis to 0% residual. TRANSINT:[id number] Voice Confirmation ID: [id number] DOCUMENT ID: [id number] MIAN AGUIRRE MD CC: [id number] DICTATION DATE: 10/13/19 142 ROLL FORM OPERATOR: 10/13/19 1846 DEP CLI 10/13/19 [place] [id number]
[2019-10-13 10:59] VITALS: BP 164/85; Ht 193 cm; Wt 100.0 kg
[2019-10-13 11:11] LABS: BASOPHILS 0.6 % (0-2); EOSINOPHILS 13.1 % (0-7); HEMATOCRIT 41.3 % (42.0-54.0); HEMOGLOBIN 13.7 g/dL (13.5-17.5); IMMATURE GRANULOCYTES 0.3 % (0-5); LYMPHOCYTES 32.5 % (15-50); MCH 31.4 pg (26.0-34.0); MCHC 33.2 g/dL (31.0-37.0); MCV 94.7 fL (80.0-100.0); MEAN PLATELET VOLUME 10.2 fL (7.4-10.4); MONOCYTES 10.3 % (2-11); NEUTROPHILS 43.2 % (40-80); PLATELET COUNT 219 10x3/uL (130-400); RBC 4.36 10x6/uL (4.20-6.10); RDW 13.8 % (11.5-14.5); WBC 6.5 10x3/uL (4.8-10.8)
[2019-10-13 11:24] LABS: ANION GAP 10.9 mmol/L (8-16); CALCIUM 9.1 mg/dL (8.5-10.1); CARBON DIOXIDE 29.9 mmol/L (21.0-32.0); CREATININE - SERUM 1.1 mg/dL (0.6-1.3); POTASSIUM - SERUM 3.8 mmol/L (3.5-5.1)
[2019-10-13 11:34] LABS: CHOL - HDL RATIO 2.9 ratio (2.3-4.9); LDL-HDL RATIO 1.6 ratio (1.5-3.5)
[2019-10-13] MEDS ORDERED: PLAVIX75 MG PO (14:30)
--- NOTE | 2019-10-13 14:35 | NUR ---
PATIENT ARRIVED TO ROOM 4, PLACED ON CM. VSS ON 3L NC. RIGHT GROIN DRESSING IS CDI, NO S/S OF BLEEDING OR HEMATOMA.
--- NOTE | 2019-10-13 14:50 | NUR ---
PATIENT RESTING, VSS ON 2L NC. RIGHT GROIN DRESSING IS CDI, NO S/S OF BLEEDING OR HEMATOMA. NO C/O PAIN, NUMBNESS, OR TINGLING. NO N/V.
--- NOTE | 2019-10-13 15:20 | NUR ---
PATIENT INTERMITTENTLY RESTING, VSS ON 2L NC. RIGHT GROIN DRESSING IS CDI, NO S/S OF BLEEDING OR HEMATOMA. NO C/O PAIN, NUMBNESS, OR TINGLING. TOLERATING PO FLUIDS, NO N/V. PRESENT AT BEDSIDE.
--- NOTE | 2019-10-13 15:50 | NUR ---
PATIENT RESTING, SPOUSE PRESENT AT BEDSIDE. VSS ON 2L NC. RIGHT GROIN DRESSING IS CDI, NO S/S OF BLEEDING OR HEMATOMA. NO C/O PAIN, NUMBNESS,OR TINGLING.
--- NOTE | 2019-10-13 16:20 | NUR ---
PATIENT VOIDED WITHOUT DIFFICULTY. VSS ON 1L NC. RIGHT GROIN DRESSING IS CDI, NO S/S OF BLEEDING OR HEMATOMA. NO C/O PAIN, NUMBNESS, OR TINGLING. TOLERATING PO FLUIDS, NO N/V.
--- NOTE | 2019-10-13 16:50 | NUR ---
PATIENT RESTING, VSS ON 1L NC. RIGHT GROIN DRESSING IS CDI, NO S/S OF BLEEDING OR HEMATOMA. SPOUSE PRESENT AT BEDSIDE. TOLERATING PO FLUIDS, NO N/V.
--- NOTE | 2019-10-13 17:20 | NUR ---
HEAD OF BED ELEVATED TO 45 DEGREES, RIGHT GROIN DRESSING IS CDI, NO S/S OF BLEEDING OR HEMATOMA. NO C/O PAIN, NUMBNESS, OR TINGLING. VSS ON ROOM AIR. PATIENT GIVEN COFFEE AND PEANUT BUTTER CRACKERS PER REQUEST, NO N/V.
--- NOTE | 2019-10-13 17:45 | NUR ---
RIGHT GROIN DRESSING IS CDI, NO S/S OF BLEEDING OR HEMATOMA. HEAD OF BED AT 90 DEGREES. TOLERATING PO FLUIDS AND FOOD, NO N/V. VSS ON ROOM AIR. IV REMOVED. WRITTEN AND VERBAL DISCHARGE EDUCATION AND MEDICATION INSTRUCTIONS GIVEN TO PATIENT AND SPOUSE, BOTH VOICE UNDERSTANDING.
--- NOTE | 2019-10-13 18:10 | NUR ---
RIGHT GROIN DRESSING IS CDI, NO S/S OF BLEEDING OR HEMATOMA. PATIENT TRANSPORTED VIA WHEELCHAIR TO CAR WITH SPOUSE DRIVING, ALL BELONGINGS WITH PATIENT.
== END 2019-10-13 18:10 ==
LOC: D.CATH 10:21
PROVIDERS: ATTEND Internal Medicine Interventional Cardiology
DX: I25.119 Atherosclerotic heart disease of native coronary artery with unspecified angina pectoris (principal); I10 Essential (primary) hypertension; I34.0 Nonrheumatic mitral (valve) insufficiency; I35.0 Nonrheumatic aortic (valve) stenosis; I49.3 Ventricular premature depolarization; R00.2 Palpitations; R07.9 Chest pain, unspecified; R94.31 Abnormal electrocardiogram [ECG] [EKG]; R06.09 Other forms of dyspnea